=== PATIENT | male | born 1960 | race Caucasian/White ===

== ENCOUNTER 2019-07-28 11:26 | Inpatient (IN) | payer MEDICAID, OTHER ==
[~2019-07-28] VITALS: Ht 167.6 cm; Wt 95.6 kg
[2019-07-28] MEDS ORDERED: SODIUM CHLORIDE 0.9% 500 ML IV ONE (11:58)
[2019-07-28] MEDS ORDERED: CLINDAMYCIN 600MG IV 50 ML IV ONE (12:00)
[2019-07-28 12:17] LABS: Basophils # (auto) 0.1 10 ^3/uL (0-0.2); Basophils % (auto) 1.2 % (0.0-2.0); Eosinophils # (auto) 0.1 10 ^3/uL (0-0.8); Eosinophils % (auto) 1.2 % (0.0-7.0); Hematocrit 37.3 % (41.0-53.0); Hemoglobin 12.4 g/dL (13.5-17.5); Lymphocytes # (auto) 1.2 10 ^3/uL (0.4-5.4); Lymphocytes % (auto) 11.8 % (10.0-50.0); Mean Corpuscular Hgb Conc. 33.2 g/dL (32.0-36.0); Mean Corpuscular Volume 90.3 fL (80.0-100.0); Monocytes # (auto) 0.8 10 ^3/uL (0-1.3); Monocytes % (auto) 7.6 % (0.0-12.0); Neutrophils # (auto) 7.7 10 ^3/uL (1.6-8.6); Neutrophils % (auto) 78.2 % (37.0-80.0); Nucleated Red Blood Cells % 0.1 %; Platelet Count (auto) 277 10^3/uL (140-450); Red Blood Cells 4.12 10^6/uL (4.5-5.90); White Blood Cell 9.9 10^3/uL (4.4-10.8)
[2019-07-28 12:36] LABS: Albumin 2.8 g/dL (3.4-5.0); Calcium 9.7 mg/dL (8.5-10.1); Potassium 3.9 mmol/L (3.5-5.1)
[2019-07-28 12:39] LABS: Bilirubin, Total 0.4 mg/dL (0.2-1.0); Total Protein 7.2 g/dL (6.4-8.2)
[2019-07-28] MEDS ORDERED: DEXTROSE (50%) 50ML SYRG IV PRN (13:15)
[2019-07-28] MEDS ORDERED: NITROGLYCERIN 0.4 MG SL TAB SL PRN (13:15)
[2019-07-28] MEDS ORDERED: VANCOMYCIN PER PHARMACY 0 MG IV SCH (13:15)
[2019-07-28] MEDS ORDERED: MORPHINE SULF INJ 2 MG/ML SYRINGE 1ML IV PRN (13:15)
[2019-07-28] MEDS ORDERED: GABAPENTIN 300 MG CAP PO ONE (13:45)
[2019-07-28] MEDS ORDERED: FUROSEMIDE 20 MG TAB PO ONE (13:45)
[2019-07-28] MEDS ORDERED: METOPROLOL SUCCINATE XL 50 MG TAB PO ONE (13:45)
[2019-07-28] MEDS ORDERED: cefTRIAXone 1GM/50ML D5W 50 ML IV ONE (13:45)
[2019-07-28] MEDS: HYDROmorphone HCL 2 MG/ML VL IV PRN ×2 (13:50→18:02)
[2019-07-28] MEDS: ONDANSETRON HCL 4 MG/2 ML VIAL IV PRN (13:50)
[2019-07-28] MEDS ORDERED: VANCOMYCIN 1GM/250ML 250 ML IV ONE ×3 (14:45→17:45)
[2019-07-28] MEDS ORDERED: OPTISON 3ml Vial for INJ IV ONE (15:49)
[2019-07-28 16:41] VITALS: BP 107/53
[2019-07-28] MEDS: metroNIDAZOLE 500MG/100ML 100 ML IV SCH ×2 (16:48→21:18)
[2019-07-28 18:03] LABS: Magnesium 1.3 mg/dL (1.6-2.6)
[2019-07-28] MEDS: ACCU-CHEK COMFORT CURVE STRIP VI SCH ×2 (18:07→21:27)
[2019-07-28] MEDS: InsuLIN REG 1unit/0.01ml Soln (100units/ml) SC SCH ×2 (18:08→21:27)
[2019-07-28] MEDS ORDERED: LISI40TA PO (18:19)
[2019-07-28] MEDS ORDERED: SPIR25TA8 PO (18:19)
[2019-07-28] MEDS ORDERED: METF-370 PO (18:19)
[2019-07-28] MEDS ORDERED: GABA300C10 PO (18:19)
[2019-07-28] MEDS ORDERED: DABI150C5 PO (18:19)
[2019-07-28] MEDS ORDERED: METO-169 PO (18:19)
[2019-07-28] MEDS ORDERED: GLYB5TAB8 PO (18:19)
[2019-07-28] MEDS ORDERED: ATO40T PO (18:19)
[2019-07-28] MEDS ORDERED: FURO40TA4 PO (18:19)
[2019-07-28] MEDS ORDERED: ALBUAER3 IN (18:19)
[2019-07-28 20:10] VITALS: BP 103/58
[2019-07-28] MEDS: ATORVASTATIN 20 MG TAB PO SCH (21:15)
[2019-07-28] MEDS: GABAPENTIN 300 MG CAP PO SCH (21:15)
[2019-07-28 22:00] VITALS: BP 103/58
[2019-07-29] MEDS: HYDROmorphone HCL 2 MG/ML VL IV PRN ×4 (00:33→20:01)
[2019-07-29 05:00] VITALS: BP 129/85
[2019-07-29 05:10] LABS: Basophils # (auto) 0.1 10 ^3/uL (0-0.2); Eosinophils # (auto) 0.2 10 ^3/uL (0-0.8); Eosinophils % (auto) 1.8 % (0.0-7.0); Hematocrit 36.2 % (41.0-53.0); Hemoglobin 12.2 g/dL (13.5-17.5); Lymphocytes % (auto) 12.6 % (10.0-50.0); Mean Corpuscular Hemoglobin 30.5 pg (28.0-32.0); Mean Corpuscular Hgb Conc. 33.8 g/dL (32.0-36.0); Mean Corpuscular Volume 90.4 fL (80.0-100.0); Monocytes # (auto) 0.9 10 ^3/uL (0-1.3); Monocytes % (auto) 10.9 % (0.0-12.0); Neutrophils % (auto) 73.7 % (37.0-80.0); Nucleated Red Blood Cells % 0.1 %; Platelet Count (auto) 261 10^3/uL (140-450); Red Blood Cells 4.01 10^6/uL (4.5-5.90); Red Cell Distribution Width 15.7 % (11.8-14.3); White Blood Cell 8.2 10^3/uL (4.4-10.8)
[2019-07-29 05:26] LABS: BUN/Creatinine Ratio 17.1; Calcium 9.3 mg/dL (8.5-10.1); Potassium 4.3 mmol/L (3.5-5.1)
[2019-07-29] MEDS: metroNIDAZOLE 500MG/100ML 100 ML IV SCH (05:37)
[2019-07-29] MEDS: InsuLIN REG 1unit/0.01ml Soln (100units/ml) SC SCH ×4 (05:41→22:14)
[2019-07-29] MEDS: ACCU-CHEK COMFORT CURVE STRIP VI SCH ×4 (05:42→22:12)
[2019-07-29] MEDS: VANCOMYCIN 750mg/250ml 250 ML IV SCH ×2 (06:27→18:24)
[2019-07-29] MEDS ORDERED: FUROSEMIDE 20 MG/2 ML VIAL IV ONE (08:30)
[2019-07-29 08:34] VITALS: BP 105/67
[2019-07-29] MEDS: MAGNESIUM SULFATE 1GM/100ML 100 ML IV SCH ×2 (08:59→10:51)
[2019-07-29] MEDS ORDERED: cefTRIAXone 1GM/50ML D5W 50 ML IV SCH (09:00)
[2019-07-29] MEDS: GABAPENTIN 300 MG CAP PO SCH ×2 (09:46→22:12)
[2019-07-29] MEDS ORDERED: FUROSEMIDE 20 MG TAB PO SCH (10:00)
[2019-07-29] MEDS ORDERED: METOPROLOL SUCCINATE XL 50 MG TAB PO SCH (10:00)
[2019-07-29] MEDS ORDERED: PIPERACILLIN-TAZO 4.5GM 100 ML IV ONE (11:15)
[2019-07-29 11:28] LABS: Magnesium 1.7 mg/dL (1.6-2.6)
[2019-07-29 11:35] LABS: CRP High Sensitivity 3.33 mg/dL (< 0.3)
[2019-07-29 12:27] VITALS: BP 111/63
[2019-07-29 14:03] LABS: INR 1.13 (0.9-1.15); Partial Thromboplastin Time 31.2 sec (23.64-32.05)
[2019-07-29] MEDS ORDERED: MULTIPLE VITAMINS W/ MINERALS TAB PO ONE (15:15)
[2019-07-29] MEDS ORDERED: MAGNESIUM OXIDE 400 MG TAB PO ONE (15:15)
[2019-07-29] MEDS ORDERED: CHOLECALCIFEROL (VITD3) 1,000IU=25mCg TAB PO ONE (15:15)
[2019-07-29 16:45] VITALS: BP 125/83
[2019-07-29 17:12] LABS: Urine Bacteria NONE SEEN /hpf (None Seen); Urine Blood 2+ /uL (Negative); Urine Specific Gravity 1.015 (1.001-1.035); Urine WBC 3 /hpf (0 - 3)
[2019-07-29] MEDS ORDERED: NICOTINE 21MG/24 HR TOPICAL PATCH TD ONE (18:00)
[2019-07-29] MEDS ORDERED: PIPERACILLIN-TAZOB 3.375GM 100 ML IV SCH (18:00)
[2019-07-29] MEDS: FUROSEMIDE 100 MG/10ML VIAL IV SCH (18:23)
[2019-07-29 21:59] VITALS: BP 126/68
[2019-07-29] MEDS: PIPERACILLIN-TAZOB 3.375GM 100 ML IV SCH (22:11)
[2019-07-29] MEDS: HYDROcodone-ACET 5/325MG TAB PO PRN (22:12)
[2019-07-29] MEDS: ATORVASTATIN 20 MG TAB PO SCH (22:12)
[2019-07-29] MEDS: MAGNESIUM OXIDE 400 MG TAB PO SCH (22:12)
[2019-07-30] MEDS: PIPERACILLIN-TAZOB 3.375GM 100 ML IV SCH ×4 (01:45→19:55)
[2019-07-30] MEDS: HYDROmorphone HCL 2 MG/ML VL IV PRN ×4 (01:51→21:01)
[2019-07-30 05:00] VITALS: BP 129/71
[2019-07-30 06:01] LABS: Basophils # (auto) 0.1 10 ^3/uL (0-0.2); Basophils % (auto) 0.8 % (0.0-2.0); Eosinophils # (auto) 0.2 10 ^3/uL (0-0.8); Eosinophils % (auto) 2.2 % (0.0-7.0); Hematocrit 35.4 % (41.0-53.0); Hemoglobin 12.3 g/dL (13.5-17.5); Lymphocytes # (auto) 0.9 10 ^3/uL (0.4-5.4); Lymphocytes % (auto) 8.1 % (10.0-50.0); Mean Corpuscular Hemoglobin 31.2 pg (28.0-32.0); Mean Corpuscular Hgb Conc. 34.9 g/dL (32.0-36.0); Mean Corpuscular Volume 89.3 fL (80.0-100.0); Monocytes # (auto) 0.9 10 ^3/uL (0-1.3); Monocytes % (auto) 8.4 % (0.0-12.0); Neutrophils # (auto) 8.5 10 ^3/uL (1.6-8.6); Neutrophils % (auto) 80.5 % (37.0-80.0); Nucleated Red Blood Cells % 0.1 %; Platelet Count (auto) 272 10^3/uL (140-450); Red Blood Cells 3.96 10^6/uL (4.5-5.90); Red Cell Distribution Width 16.1 % (11.8-14.3); White Blood Cell 10.6 10^3/uL (4.4-10.8)
[2019-07-30 06:05] LABS: INR 1.15 (0.9-1.15); Partial Thromboplastin Time 32.5 sec (23.64-32.05)
[2019-07-30 06:19] LABS: Potassium 3.8 mmol/L (3.5-5.1)
[2019-07-30 06:24] LABS: BUN/Creatinine Ratio 16.2; Calcium 9.2 mg/dL (8.5-10.1); Magnesium 2.1 mg/dL (1.6-2.6)
[2019-07-30] MEDS: InsuLIN REG 1unit/0.01ml Soln (100units/ml) SC SCH ×4 (06:47→21:47)
[2019-07-30] MEDS: FUROSEMIDE 100 MG/10ML VIAL IV SCH ×2 (06:47→18:05)
[2019-07-30] MEDS: VANCOMYCIN 750mg/250ml 250 ML IV SCH ×2 (06:47→18:05)
[2019-07-30] MEDS: ACCU-CHEK COMFORT CURVE STRIP VI SCH ×4 (06:47→21:47)
[2019-07-30] MEDS: MAGNESIUM OXIDE 400 MG TAB PO SCH ×2 (09:06→21:47)
[2019-07-30] MEDS: SACUBITRIL-VALSARTAN 24mg/26mg TAB PO SCH ×2 (09:06→21:47)
[2019-07-30] MEDS: METOPROLOL SUCCINATE XL 50 MG TAB PO SCH (09:08)
[2019-07-30] MEDS: NICOTINE 21MG/24 HR TOPICAL PATCH TD SCH (09:14)
[2019-07-30] MEDS ORDERED: LIDOCAINE 2%HCL (LOCAL ANESTH.) INJ 20ML MDV ONE ×2 (09:27→10:43)
[2019-07-30] MEDS ORDERED: IODIXANOL 320MG/ML 100ML BTL IV ONE (09:27)
[2019-07-30] MEDS ORDERED: fentaNYL CITRATE 100 MCG/2 ML VL ONE (10:20)
[2019-07-30] MEDS ORDERED: ANGIOMAX 250 MG VIAL IV ONE (10:20)
[2019-07-30] MEDS ORDERED: SODIUM CHL 0.9% 50 ML ONE (10:21)
[2019-07-30] MEDS ORDERED: MIDAZOLAM HCL 1MG/1ML-2 ML VIAL ONE (10:21)
[2019-07-30] MEDS ORDERED: VERAPAMIL 2.5MG/ML INJ 2ML VIAL IV ONE ×2 (10:59→11:14)
[2019-07-30] MEDS ORDERED: BISACODYL 5 MG EC TAB PO ONE (11:15)
[2019-07-30 13:00] VITALS: BP 124/67
[2019-07-30 14:11] LABS: Creatinine, Urine 39 mg/dL (30.0-125.0); Sodium Urine 65 mmol/L (40-220)
[2019-07-30] MEDS: MULTIPLE VITAMINS W/ MINERALS TAB PO SCH (14:24)
[2019-07-30] MEDS: CHOLECALCIFEROL (VITD3) 1,000IU=25mCg TAB PO SCH (14:47)
[2019-07-30 17:15] VITALS: BP 110/68
[2019-07-30] MEDS: ATORVASTATIN 20 MG TAB PO SCH (21:47)
[2019-07-30 22:00] VITALS: BP 119/68
[2019-07-31] MEDS: HYDROmorphone HCL 2 MG/ML VL IV PRN ×5 (01:10→23:23)
[2019-07-31] MEDS: PIPERACILLIN-TAZOB 3.375GM 100 ML IV SCH ×4 (01:44→20:28)
[2019-07-31 05:00] VITALS: BP 120/54
[2019-07-31] MEDS: ACCU-CHEK COMFORT CURVE STRIP VI SCH ×4 (06:29→21:48)
[2019-07-31] MEDS: VANCOMYCIN 750mg/250ml 250 ML IV SCH ×2 (06:29→18:43)
[2019-07-31] MEDS: FUROSEMIDE 100 MG/10ML VIAL IV SCH ×2 (06:29→17:34)
[2019-07-31 06:38] LABS: BUN/Creatinine Ratio 13.2; Calcium 8.7 mg/dL (8.5-10.1); Magnesium 2.1 mg/dL (1.6-2.6); Potassium 3.3 mmol/L (3.5-5.1)
[2019-07-31] MEDS: InsuLIN REG 1unit/0.01ml Soln (100units/ml) SC SCH ×4 (06:39→21:49)
[2019-07-31 08:00] VITALS: BP 120/54
[2019-07-31] MEDS ORDERED: POTASSIUM CHL 20 Meq TABLET PO ONE ×2 (08:30→11:00)
[2019-07-31 09:13] VITALS: BP 131/70
[2019-07-31] MEDS: NICOTINE 21MG/24 HR TOPICAL PATCH TD SCH (09:37)
[2019-07-31] MEDS: MAGNESIUM OXIDE 400 MG TAB PO SCH ×2 (09:38→21:48)
[2019-07-31] MEDS: SACUBITRIL-VALSARTAN 24mg/26mg TAB PO SCH ×2 (09:38→21:48)
[2019-07-31] MEDS: MULTIPLE VITAMINS W/ MINERALS TAB PO SCH (09:38)
[2019-07-31] MEDS: HYDROcodone-ACET 5/325MG TAB PO PRN ×2 (09:39→20:37)
[2019-07-31] MEDS: METOPROLOL SUCCINATE XL 50 MG TAB PO SCH (09:39)
[2019-07-31] MEDS: CHOLECALCIFEROL (VITD3) 1,000IU=25mCg TAB PO SCH (12:54)
[2019-07-31] MEDS: CALCIUM CARB 500 MG CHEW TAB PO PRN (12:55)
[2019-07-31] MEDS: ONDANSETRON HCL 4 MG/2 ML VIAL IV PRN (12:55)
[2019-07-31 13:00] VITALS: BP 116/63
[2019-07-31] MEDS ORDERED: LIDOCAINE 1% (LOCAL ANESTH.) PF 5ml SDV ID ONE (15:00)
[2019-07-31 16:29] VITALS: BP 119/59
[2019-07-31] MEDS: ATORVASTATIN 20 MG TAB PO SCH (21:48)
[2019-07-31] MEDS: SODIUM CHLOR 0.9% PF (SALINE LOCK) 10ML VIAL/SYR IV SCH (21:48)
[2019-07-31 22:00] VITALS: BP 124/72
[2019-08-01] MEDS: PIPERACILLIN-TAZOB 3.375GM 100 ML IV SCH ×4 (01:59→20:34)
[2019-08-01 05:02] VITALS: BP 124/62
[2019-08-01] MEDS: VANCOMYCIN 750mg/250ml 250 ML IV SCH ×2 (05:40→18:43)
[2019-08-01] MEDS: FUROSEMIDE 100 MG/10ML VIAL IV SCH (05:40)
[2019-08-01] MEDS: HYDROmorphone HCL 2 MG/ML VL IV PRN ×3 (05:40→20:34)
[2019-08-01 06:09] LABS: Basophils # (auto) 0.1 10 ^3/uL (0-0.2); Basophils % (auto) 0.7 % (0.0-2.0); Eosinophils # (auto) 0.2 10 ^3/uL (0-0.8); Eosinophils % (auto) 1.6 % (0.0-7.0); Hematocrit 36.6 % (41.0-53.0); Hemoglobin 12.4 g/dL (13.5-17.5); Lymphocytes % (auto) 8.4 % (10.0-50.0); Mean Corpuscular Hemoglobin 30.2 pg (28.0-32.0); Mean Corpuscular Hgb Conc. 33.9 g/dL (32.0-36.0); Mean Corpuscular Volume 89.3 fL (80.0-100.0); Monocytes # (auto) 1.2 10 ^3/uL (0-1.3); Monocytes % (auto) 10.8 % (0.0-12.0); Neutrophils # (auto) 8.9 10 ^3/uL (1.6-8.6); Neutrophils % (auto) 78.5 % (37.0-80.0); Nucleated Red Blood Cells % 0.1 %; Platelet Count (auto) 204 10^3/uL (140-450); White Blood Cell 11.3 10^3/uL (4.4-10.8)
[2019-08-01 06:22] LABS: INR 1.21 (0.9-1.15); Partial Thromboplastin Time 30.2 sec (23.64-32.05)
[2019-08-01 06:26] LABS: BUN/Creatinine Ratio 10.7; Calcium 8.9 mg/dL (8.5-10.1); Phosphorus 1.8 mg/dL (2.5-4.90); Potassium 3.9 mmol/L (3.5-5.1)
[2019-08-01] MEDS: ACCU-CHEK COMFORT CURVE STRIP VI SCH ×4 (06:48→21:48)
[2019-08-01] MEDS: InsuLIN REG 1unit/0.01ml Soln (100units/ml) SC SCH ×4 (06:49→22:25)
[2019-08-01 08:00] VITALS: BP 124/62
[2019-08-01] MEDS: SACUBITRIL-VALSARTAN 24mg/26mg TAB PO SCH ×2 (08:20→21:47)
[2019-08-01] MEDS: METOPROLOL SUCCINATE XL 50 MG TAB PO SCH (08:22)
[2019-08-01 09:00] VITALS: BP 102/59
[2019-08-01] MEDS ORDERED: IODIXANOL 320MG/ML 100ML BTL IV ONE ×2 (09:07→10:28)
[2019-08-01] MEDS ORDERED: ANGIOMAX 250 MG VIAL IV ONE ×2 (09:17→10:28)
[2019-08-01] MEDS ORDERED: MIDAZOLAM HCL 1MG/1ML-2 ML VIAL ONE ×2 (09:18→10:16)
[2019-08-01] MEDS ORDERED: fentaNYL CITRATE 100 MCG/2 ML VL ONE ×2 (09:18→10:16)
[2019-08-01] MEDS ORDERED: SODIUM CHL 0.9% 0 ML ONE (09:18)
[2019-08-01] MEDS ORDERED: VERAPAMIL 2.5MG/ML INJ 2ML VIAL IV ONE ×2 (09:53→10:15)
[2019-08-01] MEDS ORDERED: diphenhdrAMINE HCL 50 MG/1 ML VL ONE (09:58)
[2019-08-01] MEDS: SODIUM CHLOR 0.9% PF (SALINE LOCK) 10ML VIAL/SYR IV SCH ×2 (10:00→21:47)
[2019-08-01] MEDS ORDERED: SODIUM CHL 0.9% 50 ML ONE (10:28)
[2019-08-01] MEDS ORDERED: CLOPIDOGREL 300 MG TAB PO ONE (11:45)
[2019-08-01 13:00] VITALS: BP 126/69
[2019-08-01] MEDS: POTASSIUM CHL 20 Meq TABLET PO SCH (13:54)
[2019-08-01] MEDS: NICOTINE 21MG/24 HR TOPICAL PATCH TD SCH (13:54)
[2019-08-01] MEDS: MULTIPLE VITAMINS W/ MINERALS TAB PO SCH (13:54)
[2019-08-01] MEDS: MAGNESIUM OXIDE 400 MG TAB PO SCH ×2 (13:55→21:48)
[2019-08-01] MEDS: CALCIUM CARB 500 MG CHEW TAB PO PRN ×2 (16:35→20:34)
[2019-08-01] MEDS: CHOLECALCIFEROL (VITD3) 1,000IU=25mCg TAB PO SCH (16:50)
[2019-08-01 17:00] VITALS: BP 125/70
[2019-08-01] MEDS: APIXABAN 2.5 MG TAB PO SCH (21:47)
[2019-08-01] MEDS: ATORVASTATIN 20 MG TAB PO SCH (21:47)
[2019-08-01 22:00] VITALS: BP 144/75
[2019-08-01] MEDS: HYDROcodone-ACET 5/325MG TAB PO PRN (22:45)
[2019-08-02] MEDS: HYDROmorphone HCL 2 MG/ML VL IV PRN ×5 (00:20→23:37)
[2019-08-02] MEDS: PIPERACILLIN-TAZOB 3.375GM 100 ML IV SCH ×4 (02:29→19:37)
[2019-08-02 05:00] VITALS: BP 135/68
[2019-08-02] MEDS: VANCOMYCIN 750mg/250ml 250 ML IV SCH ×3 (06:00→20:04)
[2019-08-02] MEDS: ACCU-CHEK COMFORT CURVE STRIP VI SCH ×4 (07:10→21:40)
[2019-08-02] MEDS: InsuLIN REG 1unit/0.01ml Soln (100units/ml) SC SCH ×4 (07:11→21:43)
[2019-08-02 08:00] VITALS: BP 131/74
[2019-08-02 09:00] VITALS: BP 131/74
[2019-08-02] MEDS: NICOTINE 21MG/24 HR TOPICAL PATCH TD SCH (09:42)
[2019-08-02] MEDS: SODIUM CHLOR 0.9% PF (SALINE LOCK) 10ML VIAL/SYR IV SCH ×2 (09:42→21:31)
[2019-08-02] MEDS: SACUBITRIL-VALSARTAN 24mg/26mg TAB PO SCH ×2 (09:42→21:40)
[2019-08-02] MEDS: CHOLECALCIFEROL (VITD3) 1,000IU=25mCg TAB PO SCH (09:43)
[2019-08-02] MEDS: POTASSIUM CHL 20 Meq TABLET PO SCH (09:44)
[2019-08-02] MEDS: METOPROLOL SUCCINATE XL 50 MG TAB PO SCH (09:44)
[2019-08-02] MEDS: APIXABAN 2.5 MG TAB PO SCH ×2 (09:44→21:40)
[2019-08-02] MEDS: FUROSEMIDE 20 MG TAB PO SCH (09:45)
[2019-08-02] MEDS: MULTIPLE VITAMINS W/ MINERALS TAB PO SCH (09:46)
[2019-08-02] MEDS: MAGNESIUM OXIDE 400 MG TAB PO SCH ×2 (09:46→21:40)
[2019-08-02] MEDS: CLOPIDOGREL BISULFATE 75 MG TAB PO SCH (09:46)
[2019-08-02 12:57] VITALS: BP 116/65
[2019-08-02] MEDS: CALCIUM CARB 500 MG CHEW TAB PO PRN ×2 (13:17→18:02)
[2019-08-02] MEDS: HYDROcodone-ACET 5/325MG TAB PO PRN (16:39)
[2019-08-02 17:00] VITALS: BP 138/78
[2019-08-02] MEDS: ATORVASTATIN 20 MG TAB PO SCH (21:40)
[2019-08-02 22:00] VITALS: BP 133/78
[2019-08-03] MEDS: PIPERACILLIN-TAZOB 3.375GM 100 ML IV SCH ×4 (01:52→20:01)
[2019-08-03] MEDS: HYDROmorphone HCL 2 MG/ML VL IV PRN ×4 (03:59→23:32)
[2019-08-03] MEDS: ACCU-CHEK COMFORT CURVE STRIP VI SCH ×4 (06:05→21:07)
[2019-08-03] MEDS: InsuLIN REG 1unit/0.01ml Soln (100units/ml) SC SCH ×4 (06:08→21:10)
[2019-08-03] MEDS: VANCOMYCIN 750mg/250ml 250 ML IV SCH ×2 (07:40→20:01)
[2019-08-03 09:00] VITALS: BP 112/59
[2019-08-03] MEDS: SODIUM CHLOR 0.9% PF (SALINE LOCK) 10ML VIAL/SYR IV SCH ×2 (09:35→21:06)
[2019-08-03] MEDS: APIXABAN 2.5 MG TAB PO SCH ×2 (09:36→21:07)
[2019-08-03] MEDS: NICOTINE 21MG/24 HR TOPICAL PATCH TD SCH (09:36)
[2019-08-03] MEDS: CLOPIDOGREL BISULFATE 75 MG TAB PO SCH (09:36)
[2019-08-03] MEDS: SACUBITRIL-VALSARTAN 24mg/26mg TAB PO SCH ×2 (09:36→21:07)
[2019-08-03] MEDS: CHOLECALCIFEROL (VITD3) 1,000IU=25mCg TAB PO SCH (09:37)
[2019-08-03] MEDS: MULTIPLE VITAMINS W/ MINERALS TAB PO SCH (09:37)
[2019-08-03] MEDS: FUROSEMIDE 20 MG TAB PO SCH (09:38)
[2019-08-03] MEDS: POTASSIUM CHL 20 Meq TABLET PO SCH (09:38)
[2019-08-03] MEDS: METOPROLOL SUCCINATE XL 50 MG TAB PO SCH (09:39)
[2019-08-03] MEDS: MAGNESIUM OXIDE 400 MG TAB PO SCH ×2 (09:39→21:08)
[2019-08-03 13:00] VITALS: BP 136/80
[2019-08-03] MEDS: HYDROcodone-ACET 5/325MG TAB PO PRN (16:00)
[2019-08-03 17:00] VITALS: BP 139/79
[2019-08-03] MEDS: CALCIUM CARB 500 MG CHEW TAB PO PRN (21:08)
[2019-08-03] MEDS: ATORVASTATIN 20 MG TAB PO SCH (21:08)
[2019-08-03 22:15] VITALS: BP 128/73
[2019-08-04] MEDS: PIPERACILLIN-TAZOB 3.375GM 100 ML IV SCH ×4 (01:39→19:56)
[2019-08-04 05:00] VITALS: BP 137/77
[2019-08-04] MEDS: ACCU-CHEK COMFORT CURVE STRIP VI SCH ×4 (06:07→21:25)
[2019-08-04] MEDS: HYDROmorphone HCL 2 MG/ML VL IV PRN ×5 (06:07→20:17)
[2019-08-04] MEDS: InsuLIN REG 1unit/0.01ml Soln (100units/ml) SC SCH ×4 (06:09→21:32)
[2019-08-04 06:20] LABS: Basophils # (auto) 0.1 10 ^3/uL (0-0.2); Basophils % (auto) 1.3 % (0.0-2.0); Eosinophils # (auto) 0.3 10 ^3/uL (0-0.8); Eosinophils % (auto) 2.8 % (0.0-7.0); Hematocrit 36.5 % (41.0-53.0); Hemoglobin 12.3 g/dL (13.5-17.5); Lymphocytes # (auto) 1.2 10 ^3/uL (0.4-5.4); Mean Corpuscular Hemoglobin 29.8 pg (28.0-32.0); Mean Corpuscular Hgb Conc. 33.6 g/dL (32.0-36.0); Mean Corpuscular Volume 88.7 fL (80.0-100.0); Monocytes # (auto) 0.9 10 ^3/uL (0-1.3); Monocytes % (auto) 9.3 % (0.0-12.0); Neutrophils % (auto) 73.6 % (37.0-80.0); Nucleated Red Blood Cells % 0.1 %; Platelet Count (auto) 263 10^3/uL (140-450); Red Blood Cells 4.11 10^6/uL (4.5-5.90); Red Cell Distribution Width 15.8 % (11.8-14.3); White Blood Cell 9.5 10^3/uL (4.4-10.8)
[2019-08-04 06:41] LABS: Calcium 8.6 mg/dL (8.5-10.1)
[2019-08-04] MEDS: VANCOMYCIN 750mg/250ml 250 ML IV SCH ×2 (08:10→19:57)
[2019-08-04] MEDS ORDERED: DAKINS HALF STR 0.25% (NaHypochlorite) 473 ML TOPICAL SOL TOP ONE (08:45)
[2019-08-04 09:00] VITALS: BP 112/66
[2019-08-04] MEDS ORDERED: BUPIVACAINE HCL 50 ML ONE (09:00)
[2019-08-04] MEDS ORDERED: LIDOCAINE 1% HCL (LOCAL ANESTH.) INJ 20ML MDV ONE (09:00)
[2019-08-04] MEDS: POTASSIUM CHL 20 Meq TABLET PO SCH (09:43)
[2019-08-04] MEDS: MULTIPLE VITAMINS W/ MINERALS TAB PO SCH (09:43)
[2019-08-04] MEDS: FUROSEMIDE 20 MG TAB PO SCH (09:44)
[2019-08-04] MEDS: SACUBITRIL-VALSARTAN 24mg/26mg TAB PO SCH ×2 (09:44→21:24)
[2019-08-04] MEDS: CHOLECALCIFEROL (VITD3) 1,000IU=25mCg TAB PO SCH (09:44)
[2019-08-04] MEDS: METOPROLOL SUCCINATE XL 50 MG TAB PO SCH (09:44)
[2019-08-04] MEDS: MAGNESIUM OXIDE 400 MG TAB PO SCH ×2 (09:45→21:25)
[2019-08-04] MEDS: NICOTINE 21MG/24 HR TOPICAL PATCH TD SCH (09:45)
[2019-08-04] MEDS: SODIUM CHLOR 0.9% PF (SALINE LOCK) 10ML VIAL/SYR IV SCH ×2 (09:46→21:24)
[2019-08-04] MEDS: APIXABAN 2.5 MG TAB PO SCH (10:00)
[2019-08-04] MEDS: CLOPIDOGREL BISULFATE 75 MG TAB PO SCH (10:00)
[2019-08-04] MEDS ORDERED: ERGOCALCIFEROL 50,000 UNIT(1.25MG) CAP PO SCH (10:30)
[2019-08-04 13:00] VITALS: BP 112/65
[2019-08-04] MEDS: HYDROcodone-ACET 5/325MG TAB PO PRN (15:03)
[2019-08-04] MEDS: CALCIUM CARB 500 MG CHEW TAB PO PRN ×2 (15:28→21:33)
[2019-08-04 17:00] VITALS: BP 138/65
[2019-08-04] MEDS: ATORVASTATIN 20 MG TAB PO SCH (21:24)
[2019-08-04] MEDS: ENOXAPARIN SOD 100 MG/1 ML SYRINGE SC SCH (21:25)
[2019-08-04] MEDS: INSULIN LANTUS (GLARGINE) 1 /0.01ml (100units/ml) SC SCH (21:28)
[2019-08-04 22:05] VITALS: BP 147/77
[2019-08-05] MEDS: PIPERACILLIN-TAZOB 3.375GM 100 ML IV SCH ×4 (01:20→20:00)
[2019-08-05] MEDS: HYDROmorphone HCL 2 MG/ML VL IV PRN ×5 (01:20→20:03)
[2019-08-05 05:00] VITALS: BP 114/68
[2019-08-05] MEDS: ACCU-CHEK COMFORT CURVE STRIP VI SCH ×4 (06:15→21:59)
[2019-08-05] MEDS: INSULIN LANTUS (GLARGINE) 1 /0.01ml (100units/ml) SC SCH ×2 (06:17→21:59)
[2019-08-05] MEDS: InsuLIN REG 1unit/0.01ml Soln (100units/ml) SC SCH ×4 (06:20→21:58)
[2019-08-05] MEDS: VANCOMYCIN 750mg/250ml 250 ML IV SCH ×2 (07:44→20:00)
[2019-08-05] MEDS: HYDROcodone-ACET 5/325MG TAB PO PRN ×2 (08:48→22:01)
[2019-08-05 09:00] VITALS: BP 126/71
[2019-08-05] MEDS: POTASSIUM CHL 20 Meq TABLET PO SCH (09:36)
[2019-08-05] MEDS: MULTIPLE VITAMINS W/ MINERALS TAB PO SCH (09:36)
[2019-08-05] MEDS: CHOLECALCIFEROL (VITD3) 1,000IU=25mCg TAB PO SCH (09:37)
[2019-08-05] MEDS: ENOXAPARIN SOD 100 MG/1 ML SYRINGE SC SCH (09:37)
[2019-08-05] MEDS: SACUBITRIL-VALSARTAN 24mg/26mg TAB PO SCH ×2 (09:37→21:48)
[2019-08-05] MEDS: METOPROLOL SUCCINATE XL 50 MG TAB PO SCH (09:38)
[2019-08-05] MEDS: FUROSEMIDE 20 MG TAB PO SCH (09:38)
[2019-08-05] MEDS: MAGNESIUM OXIDE 400 MG TAB PO SCH ×2 (09:39→21:49)
[2019-08-05] MEDS: NICOTINE 21MG/24 HR TOPICAL PATCH TD SCH (09:39)
[2019-08-05] MEDS: SODIUM CHLOR 0.9% PF (SALINE LOCK) 10ML VIAL/SYR IV SCH ×2 (11:05→22:52)
[2019-08-05] MEDS: CALCIUM CARB 500 MG CHEW TAB PO PRN (11:05)
[2019-08-05 12:45] VITALS: BP 132/74
[2019-08-05 13:17] LABS: Basophils # (auto) 0 10 ^3/uL (0-0.2); Basophils % (auto) 0.3 % (0.0-2.0); Eosinophils # (auto) 0.3 10 ^3/uL (0-0.8); Eosinophils % (auto) 2.9 % (0.0-7.0); Hematocrit 39.1 % (41.0-53.0); Hemoglobin 12.5 g/dL (13.5-17.5); Lymphocytes # (auto) 1.4 10 ^3/uL (0.4-5.4); Lymphocytes % (auto) 12.7 % (10.0-50.0); Mean Corpuscular Hemoglobin 28.6 pg (28.0-32.0); Mean Corpuscular Hgb Conc. 32.1 g/dL (32.0-36.0); Mean Corpuscular Volume 89.2 fL (80.0-100.0); Monocytes % (auto) 8.9 % (0.0-12.0); Neutrophils # (auto) 8.4 10 ^3/uL (1.6-8.6); Neutrophils % (auto) 75.2 % (37.0-80.0); Nucleated Red Blood Cells % 0.1 %; Platelet Count (auto) 321 10^3/uL (140-450); Red Blood Cells 4.38 10^6/uL (4.5-5.90); Red Cell Distribution Width 15.9 % (11.8-14.3); White Blood Cell 11.1 10^3/uL (4.4-10.8)
[2019-08-05 13:32] LABS: INR 1.11 (0.9-1.15); Partial Thromboplastin Time 30.8 sec (23.64-32.05)
[2019-08-05 13:36] LABS: Albumin 2.4 g/dL (3.4-5.0); Calcium 8.9 mg/dL (8.5-10.1); Potassium 4.2 mmol/L (3.5-5.1)
[2019-08-05 13:39] LABS: BUN/Creatinine Ratio 8.6; Bilirubin, Total 0.4 mg/dL (0.2-1.0); Total Protein 6.8 g/dL (6.4-8.2)
[2019-08-05 17:00] VITALS: BP 105/70
[2019-08-05] MEDS: ATORVASTATIN 20 MG TAB PO SCH (21:49)
[2019-08-05 22:00] VITALS: BP 105/73
[2019-08-06] MEDS: HYDROmorphone HCL 2 MG/ML VL IV PRN ×5 (00:30→23:39)
[2019-08-06] MEDS: PIPERACILLIN-TAZOB 3.375GM 100 ML IV SCH ×3 (02:22→17:27)
[2019-08-06 05:00] VITALS: BP_SYST 116; BP_SYST 130; BP_DIAS 69; BP_DIAS 71
[2019-08-06 06:16] LABS: BUN/Creatinine Ratio 10.9; Calcium 9.1 mg/dL (8.5-10.1); Potassium 4.4 mmol/L (3.5-5.1)
[2019-08-06] MEDS: INSULIN LANTUS (GLARGINE) 1 /0.01ml (100units/ml) SC SCH ×2 (07:00→22:00)
[2019-08-06] MEDS: ACCU-CHEK COMFORT CURVE STRIP VI SCH ×4 (07:00→22:00)
[2019-08-06] MEDS: InsuLIN REG 1unit/0.01ml Soln (100units/ml) SC SCH ×4 (07:00→22:00)
[2019-08-06] MEDS: VANCOMYCIN 750mg/250ml 250 ML IV SCH ×3 (07:31→20:00)
[2019-08-06] MEDS ORDERED: MIDAZOLAM HCL 1MG/1ML-2 ML VIAL ONE (07:33)
[2019-08-06] MEDS ORDERED: SODIUM CHLORIDE LOCK 10 ML ONE (07:33)
[2019-08-06] MEDS ORDERED: PROPOFOL 10 MG/ML 20 ML IV ONE (07:33)
[2019-08-06] MEDS ORDERED: ONDANSETRON HCL 4 MG/2 ML VIAL ONE (07:33)
[2019-08-06] MEDS ORDERED: fentaNYL CITRATE 100 MCG/2 ML VL ONE (07:33)
[2019-08-06] MEDS ORDERED: KETAMINE HCL 10 ML ONE (07:33)
[2019-08-06 08:00] VITALS: BP 126/71
[2019-08-06] MEDS ORDERED: LIDOCAINE 1% HCL (LOCAL ANESTH.) INJ 20ML MDV ONE ×2 (08:10→08:33)
[2019-08-06] MEDS ORDERED: BUPIVACAINE HCL 50 ML ONE (08:11)
[2019-08-06] MEDS ORDERED: METOCLOPRAMIDE HCL 5MG/ml INJ 2ml VIAL IV PRN (08:15)
[2019-08-06] MEDS ORDERED: MORPHINE SULFATE 4 MG/ML SYR/VIAL IV PRN (08:15)
[2019-08-06] MEDS ORDERED: HYDROmorphone HCL 2 MG/ML VL IV PRN (08:15)
[2019-08-06] MEDS ORDERED: ACCU-CHEK COMFORT CURVE STRIP VI ONE (08:15)
[2019-08-06] MEDS: SODIUM CHLOR 0.9% PF (SALINE LOCK) 10ML VIAL/SYR IV SCH ×2 (10:00→22:00)
[2019-08-06 12:35] VITALS: BP 129/63
[2019-08-06] MEDS: NICOTINE 21MG/24 HR TOPICAL PATCH TD SCH (16:02)
[2019-08-06] MEDS: MULTIPLE VITAMINS W/ MINERALS TAB PO SCH (16:02)
[2019-08-06] MEDS: POTASSIUM CHL 20 Meq TABLET PO SCH (16:04)
[2019-08-06] MEDS: METOPROLOL SUCCINATE XL 50 MG TAB PO SCH (16:05)
[2019-08-06] MEDS: SACUBITRIL-VALSARTAN 24mg/26mg TAB PO SCH ×2 (16:06→22:00)
[2019-08-06] MEDS: CHOLECALCIFEROL (VITD3) 1,000IU=25mCg TAB PO SCH (16:06)
[2019-08-06] MEDS: FUROSEMIDE 20 MG TAB PO SCH (16:07)
[2019-08-06] MEDS: MAGNESIUM OXIDE 400 MG TAB PO SCH ×2 (16:08→22:00)
[2019-08-06 17:00] VITALS: BP 102/52
[2019-08-06] MEDS: HYDROcodone-ACET 5/325MG TAB PO PRN (21:55)
[2019-08-06 22:00] VITALS: BP 110/57
[2019-08-06] MEDS: ATORVASTATIN 20 MG TAB PO SCH (22:00)
[2019-08-06] MEDS ORDERED: APIXABAN 5 MG TAB PO SCH (22:00)
[2019-08-07] MEDS: PIPERACILLIN-TAZOB 3.375GM 100 ML IV SCH ×3 (00:18→12:20)
[2019-08-07] MEDS: HYDROmorphone HCL 2 MG/ML VL IV PRN ×3 (03:30→10:24)
[2019-08-07 05:00] VITALS: BP 113/63
[2019-08-07] MEDS: HYDROcodone-ACET 5/325MG TAB PO PRN ×2 (05:02→13:25)
[2019-08-07] MEDS: InsuLIN REG 1unit/0.01ml Soln (100units/ml) SC SCH ×2 (06:43→11:38)
[2019-08-07] MEDS: INSULIN LANTUS (GLARGINE) 1 /0.01ml (100units/ml) SC SCH (06:44)
[2019-08-07] MEDS: ACCU-CHEK COMFORT CURVE STRIP VI SCH ×2 (06:46→11:37)
[2019-08-07 08:00] VITALS: BP 129/63
[2019-08-07] MEDS: VANCOMYCIN 750mg/250ml 250 ML IV SCH (08:36)
[2019-08-07 09:00] VITALS: BP 158/81
[2019-08-07] MEDS: SACUBITRIL-VALSARTAN 24mg/26mg TAB PO SCH (09:16)
[2019-08-07] MEDS: NICOTINE 21MG/24 HR TOPICAL PATCH TD SCH (09:16)
[2019-08-07] MEDS: CHOLECALCIFEROL (VITD3) 1,000IU=25mCg TAB PO SCH (09:17)
[2019-08-07] MEDS: FUROSEMIDE 20 MG TAB PO SCH (09:18)
[2019-08-07] MEDS: POTASSIUM CHL 20 Meq TABLET PO SCH (09:19)
[2019-08-07] MEDS: MULTIPLE VITAMINS W/ MINERALS TAB PO SCH (09:19)
[2019-08-07] MEDS: METOPROLOL SUCCINATE XL 50 MG TAB PO SCH (09:20)
[2019-08-07] MEDS: MAGNESIUM OXIDE 400 MG TAB PO SCH (09:21)
[2019-08-07] MEDS: SODIUM CHLOR 0.9% PF (SALINE LOCK) 10ML VIAL/SYR IV SCH (09:35)
[2019-08-07] MEDS ORDERED: APIXABAN 5 MG TAB PO SCH (10:00)
[2019-08-07] MEDS ORDERED: CLOPIDOGREL BISULFATE 75 MG TAB PO SCH ×2 (10:00)
[2019-08-07 12:53] VITALS: BP 115/68
[2019-08-07] MEDS ORDERED: GLYB5TAB8 PO (14:03)
[2019-08-07] MEDS ORDERED: ATO40T PO (14:03)
[2019-08-07] MEDS ORDERED: GABA300C10 PO (14:03)
[2019-08-07] MEDS ORDERED: METO-169 PO (14:03)
[2019-08-07] MEDS ORDERED: SPIR25TA8 PO (14:03)
[2019-08-07] MEDS ORDERED: LISI40TA PO (14:03)
[2019-08-07] MEDS ORDERED: CLIN-203 PO (14:03)
[2019-08-07] MEDS ORDERED: METF-370 PO (14:03)
[2019-08-07] MEDS ORDERED: FURO40TA4 PO (14:03)
[2019-08-07] MEDS ORDERED: SACC1CAP3 PO (14:03)
[2019-08-07] MEDS ORDERED: APIX5TAB PO (14:03)
[2019-08-07] MEDS ORDERED: CLOP75TA28 PO (14:03)
[2019-08-07 15:17] VITALS: BP 158/81
== END 2019-08-07 17:00 | disposition home or self-care (01) | DRG 181 ==
LOC: ER 11:26 → TELE 11:27 → TELE-CENTR 15:27
PROVIDERS: ADMIT Nurse Practitioner Acute Care; ATTEND Internal Medicine
PROC: 04CL3ZZ Extirpation of Matter from Left Femoral Artery, Percutaneous Approach (ICD-10-PCS; 2019-07-30)
PROC: 047L3ZZ Dilation of Left Femoral Artery, Percutaneous Approach (ICD-10-PCS; 2019-07-30)
PROC: 047S3ZZ Dilation of Left Posterior Tibial Artery, Percutaneous Approach (ICD-10-PCS; 2019-07-30)
PROC: 04CS3ZZ Extirpation of Matter from Left Posterior Tibial Artery, Percutaneous Approach (ICD-10-PCS; 2019-07-30)
PROC: B41GYZZ Fluoroscopy of Left Lower Extremity Arteries using Other Contrast (ICD-10-PCS; 2019-07-30)
PROC: B41FYZZ Fluoroscopy of Right Lower Extremity Arteries using Other Contrast (ICD-10-PCS; 2019-07-30)
PROC: 02HV33Z Insertion of Infusion Device into Superior Vena Cava, Percutaneous Approach (ICD-10-PCS; principal; 2019-07-31)
PROC: 047R3ZZ Dilation of Right Posterior Tibial Artery, Percutaneous Approach (ICD-10-PCS; 2019-08-01)
PROC: 047P3ZZ Dilation of Right Anterior Tibial Artery, Percutaneous Approach (ICD-10-PCS; 2019-08-01)
PROC: 04CR3ZZ Extirpation of Matter from Right Posterior Tibial Artery, Percutaneous Approach (ICD-10-PCS; 2019-08-01)
PROC: 04CP3ZZ Extirpation of Matter from Right Anterior Tibial Artery, Percutaneous Approach (ICD-10-PCS; 2019-08-01)
PROC: B41F1ZZ Fluoroscopy of Right Lower Extremity Arteries using Low Osmolar Contrast (ICD-10-PCS; 2019-08-01)
PROC: 0Y6N0Z9 Detachment at Left Foot, Partial 1st Ray, Open Approach (ICD-10-PCS; 2019-08-06)
PROC: 0Y6N0ZB Detachment at Left Foot, Partial 2nd Ray, Open Approach (ICD-10-PCS; 2019-08-06)
PROC: 0Y6N0ZC Detachment at Left Foot, Partial 3rd Ray, Open Approach (ICD-10-PCS; 2019-08-06)
PROC: 0Y6N0ZD Detachment at Left Foot, Partial 4th Ray, Open Approach (ICD-10-PCS; 2019-08-06)
PROC: 0Y6N0ZF Detachment at Left Foot, Partial 5th Ray, Open Approach (ICD-10-PCS; 2019-08-06)
PROC: 0Y6M0Z9 Detachment at Right Foot, Partial 1st Ray, Open Approach (ICD-10-PCS; 2019-08-06)
PROC: 0Y6M0ZB Detachment at Right Foot, Partial 2nd Ray, Open Approach (ICD-10-PCS; 2019-08-06)
PROC: 0Y6M0ZC Detachment at Right Foot, Partial 3rd Ray, Open Approach (ICD-10-PCS; 2019-08-06)
PROC: 0Y6M0ZD Detachment at Right Foot, Partial 4th Ray, Open Approach (ICD-10-PCS; 2019-08-06)
PROC: 0Y6M0ZF Detachment at Right Foot, Partial 5th Ray, Open Approach (ICD-10-PCS; 2019-08-06)
DX: E11.52 Type 2 diabetes mellitus with diabetic peripheral angiopathy with gangrene (principal); N17.0 Acute kidney failure with tubular necrosis; I50.23 Acute on chronic systolic (congestive) heart failure; E44.0 Moderate protein-calorie malnutrition; E11.40 Type 2 diabetes mellitus with diabetic neuropathy, unspecified; E11.22 Type 2 diabetes mellitus with diabetic chronic kidney disease; I48.91 Unspecified atrial fibrillation; I13.0 Hypertensive heart and chronic kidney disease with heart failure and stage 1 through stage 4 chronic kidney disease, or unspecified chronic kidney disease; I25.10 Atherosclerotic heart disease of native coronary artery without angina pectoris; N18.3 Chronic kidney disease, stage 3 (moderate); E66.9 Obesity, unspecified; E87.6 Hypokalemia; E11.621 Type 2 diabetes mellitus with foot ulcer; E78.5 Hyperlipidemia, unspecified; I27.20 Pulmonary hypertension, unspecified; F17.210 Nicotine dependence, cigarettes, uncomplicated; J44.9 Chronic obstructive pulmonary disease, unspecified; I77.1 Stricture of artery; L97.519 Non-pressure chronic ulcer of other part of right foot with unspecified severity; E55.9 Vitamin D deficiency, unspecified; Z95.810 Presence of automatic (implantable) cardiac defibrillator; I25.2 Old myocardial infarction; Z95.5 Presence of coronary angioplasty implant and graft; Z68.34 Body mass index [BMI] 34.0-34.9, adult; Z79.899 Other long term (current) drug therapy
CPT/HCPCS: 36415; 36569; 37225; 37229; 71045; 73630; 73700; 75710; 75716; 80048; 80053; 80061; 80202; 81001; 82043; 82306; 82565; 82570; 82962; 83036; 83605; 83735; 83880; 84100; 84300; 84443; 84484; 85025; 85610; 85652; 85730; 86141; 86850; 86900; 86901; 93005; 93306; 93925; 93970; 99152; 99153; C1724; G0378; J0696; J1815; J2001; J2250; J2405; J2543; J2704; J3490; Q9956; Q9967

== ENCOUNTER 2019-08-12 14:27 | Inpatient (IN) | payer MEDICAID ==
[~2019-08-12] VITALS: Ht 170.2 cm; Wt 96.7 kg
[~2019-08-12 14:27] MED LIST: ALBUAER3 IN; APIX5TAB PO; ATO40T PO; CLIN-203 PO; CLOP75TA28 PO; FURO40TA4 PO; GABA300C10 PO; GLYB5TAB8 PO; LISI40TA PO; METF-370 PO; METO-169 PO; SACC1CAP3 PO; SPIR25TA8 PO
[2019-08-12] MEDS ORDERED: AMIODARONE HCL 150 MG in D5W 5% 100 ML IV ONE (14:35)
[2019-08-12] MEDS: AMIODARONE HCL (50 MG/ ML) 3 ML VIAL IV ONE ×2 (14:43→14:57)
[2019-08-12] MEDS ORDERED: AMIODARONE 450mg/250ml AE 250 ML IV SCH ×2 (14:45→20:45)
[2019-08-12] MEDS ORDERED: ASPirin 81 mg TAB PO ONE (14:45)
[2019-08-12 14:52] LABS: Basophils # (auto) 0.1 10 ^3/uL (0-0.2); Basophils % (auto) 1.1 % (0.0-2.0); Eosinophils # (auto) 0 10 ^3/uL (0-0.8); Eosinophils % (auto) 0.3 % (0.0-7.0); Hematocrit 32.7 % (41.0-53.0); Hemoglobin 10.4 g/dL (13.5-17.5); Lymphocytes # (auto) 1.4 10 ^3/uL (0.4-5.4); Lymphocytes % (auto) 11.5 % (10.0-50.0); Mean Corpuscular Hemoglobin 28.5 pg (28.0-32.0); Mean Corpuscular Hgb Conc. 31.8 g/dL (32.0-36.0); Mean Corpuscular Volume 89.4 fL (80.0-100.0); Monocytes # (auto) 1.1 10 ^3/uL (0-1.3); Monocytes % (auto) 9.5 % (0.0-12.0); Neutrophils # (auto) 9.2 10 ^3/uL (1.6-8.6); Neutrophils % (auto) 77.6 % (37.0-80.0); Platelet Count (auto) 403 10^3/uL (140-450); Red Blood Cells 3.66 10^6/uL (4.5-5.90); Red Cell Distribution Width 16.5 % (11.8-14.3); White Blood Cell 11.8 10^3/uL (4.4-10.8)
[2019-08-12 15:10] LABS: INR 1.23 (0.9-1.15); Partial Thromboplastin Time 26.8 sec (23.64-32.05)
[2019-08-12] MEDS ORDERED: NITROGLYCERIN 0.4 MG SL TAB SL PRN (15:30)
[2019-08-12] MEDS ORDERED: DEXTROSE (50%) 50ML SYRG IV PRN (15:30)
[2019-08-12] MEDS ORDERED: ACETAMINOPHEN 500 MG TAB PO PRN (15:30)
[2019-08-12] MEDS ORDERED: MORPHINE SULF INJ 2 MG/ML SYRINGE 1ML IV PRN (15:30)
[2019-08-12 16:19] LABS: Albumin 2.4 g/dL (3.4-5.0); Potassium 4.3 mmol/L (3.5-5.1)
[2019-08-12 16:23] LABS: Bilirubin, Total 0.4 mg/dL (0.2-1.0); Total Protein 7.1 g/dL (6.4-8.2)
[2019-08-12 16:29] LABS: BUN/Creatinine Ratio 16.5
[2019-08-12] MEDS: ONDANSETRON HCL 4 MG/2 ML VIAL IV PRN (16:55)
[2019-08-12] MEDS: ACCU-CHEK COMFORT CURVE STRIP VI SCH ×2 (17:00→22:12)
[2019-08-12] MEDS: InsuLIN REG 1unit/0.01ml Soln (100units/ml) SC SCH ×2 (17:00→22:39)
[2019-08-12] MEDS ORDERED: METOPROLOL SUCCINATE XL 50 MG TAB PO ONE (19:00)
[2019-08-12] MEDS ORDERED: FUROSEMIDE 20 MG/2 ML VIAL IV ONE (19:00)
[2019-08-12] MEDS ORDERED: ENOXAPARIN SOD 100 MG/1 ML SYRINGE SC ONE (20:00)
[2019-08-12] MEDS: FUROSEMIDE 100 MG/10ML VIAL IV SCH (21:06)
[2019-08-12] MEDS ORDERED: ATORVASTATIN 20 MG TAB PO SCH (22:00)
[2019-08-12] MEDS ORDERED: CALCIUM CARB 500 MG CHEW TAB PO PRN (22:45)
[2019-08-13] VITALS (18 sets, daily range): BP systolic 79–134; BP diastolic 41–72
[2019-08-13] MEDS: MORPHINE SULF INJ 2 MG/ML SYRINGE 1ML IV PRN ×3 (04:24→19:11)
--- NOTE | 2019-08-13 06:00 | NUR ---
Admit to [facility] ESTEFANÍAHELADIO Castro admitted to [facility] via vikyrisaías on iron and steel work supervisor. Patient transferred to bed, connected to unit monitoring and oxygen, [facility] Patient oriented to Petrona ta RN, unit, room, bed, and unit policies regarding patient care and visiting hours. All questions and concerns addressed, patient verbalized understanding.Complete physical assessment done. Bilateral lower extremities covered with kerlix dressing, per patient he just had toes amputated bilaterally on sunday and dressing was changed yesterday. ED RN placed wound consult for patient. Dressing CDI.Patient is able to turn self without assistance. IV bilaterally are leaking, IV discontinued. New IV started on right FA 22g, pt tolerated well. Call light within easy reach, instructed to call PRN.
[2019-08-13 06:08] LABS: Basophils # (auto) 0 10 ^3/uL (0-0.2); Basophils % (auto) 0.2 % (0.0-2.0); Eosinophils # (auto) 0 10 ^3/uL (0-0.8); Lymphocytes # (auto) 1.2 10 ^3/uL (0.4-5.4); Mean Corpuscular Hemoglobin 29.1 pg (28.0-32.0); Mean Corpuscular Hgb Conc. 32.3 g/dL (32.0-36.0); Mean Corpuscular Volume 90.1 fL (80.0-100.0); Monocytes # (auto) 1.7 10 ^3/uL (0-1.3); Monocytes % (auto) 11.2 % (0.0-12.0); Neutrophils % (auto) 80.6 % (37.0-80.0); Nucleated Red Blood Cells % 0.1 %; Platelet Count (auto) 353 10^3/uL (140-450); Red Blood Cells 3.78 10^6/uL (4.5-5.90); White Blood Cell 14.9 10^3/uL (4.4-10.8)
[2019-08-13 06:21] LABS: INR 1.65 (0.9-1.15); Partial Thromboplastin Time 31.3 sec (23.64-32.05)
[2019-08-13 06:23] LABS: Calcium 9.7 mg/dL (8.5-10.1)
[2019-08-13] MEDS: FUROSEMIDE 100 MG/10ML VIAL IV SCH (06:30)
[2019-08-13 06:43] LABS: Albumin 2.5 g/dL (3.4-5.0); BUN/Creatinine Ratio 15.9; Total Protein 7.3 g/dL (6.4-8.2)
[2019-08-13] MEDS: ACCU-CHEK COMFORT CURVE STRIP VI SCH ×4 (06:55→21:08)
[2019-08-13] MEDS: InsuLIN REG 1unit/0.01ml Soln (100units/ml) SC SCH ×4 (07:01→21:03)
--- NOTE | 2019-08-13 07:30 | NUR ---
REPORT ENDORSED TO DAY SHIFT DAMIAN CARRERO
--- NOTE | 2019-08-13 07:45 | NUR ---
Opening Shift Note Assumed care of patient, awake and alert. No S/S of distress/SOB. Patient saturation 95% at room air. Patient complains of bilateral foot pain 4/10, will give [place] PRN. See interventions for complete assessment. Bed locked on low position, side rails up x2, bed alarms on at all times, call painting within reach, instructed on POC and to call for assist PRN, will continue to monitor for changes Q1hr and PRN.
[2019-08-13] MEDS ORDERED: FUROSEMIDE 40 MG TAB PO SCH (08:00)
[2019-08-13] MEDS: HYDROcodone-ACET 5/325MG TAB PO PRN ×2 (08:25→22:26)
--- NOTE | 2019-08-13 09:00 | NUR ---
Eamon and AICD circulation sales representative Regino at bedside for interrogation and adjustments made on AICD setting.
--- NOTE | 2019-08-13 09:40 | NUR ---
AICD set at 40's HR, will continue to monitor.
[2019-08-13] MEDS ORDERED: LISINOPRIL 20 MG TAB PO SCH (10:00)
[2019-08-13] MEDS: CLOPIDOGREL BISULFATE 75 MG TAB PO SCH ×2 (10:00→14:03)
[2019-08-13] MEDS ORDERED: SPIRONOLACTONE 25 MG TAB PO SCH (10:00)
[2019-08-13] MEDS: FAMOTIDINE 20 MG TAB PO SCH ×2 (10:00→14:03)
[2019-08-13] MEDS: METOPROLOL SUCCINATE XL 50 MG TAB PO SCH (10:00)
[2019-08-13] MEDS: ASPirin-EC 81 mg tab PO SCH ×2 (10:00→14:03)
--- NOTE | 2019-08-13 10:20 | NUR ---
Patient's HR 45, paced. BP 79/44. Verbalized feeling weird, weak and dizzy. Paged Eamon Villagomez SALES PORTER and called back. Updated on patient's status, verbalized understanding. AICD labor service representative Regino to come back to do adjustments. Paged Dr Hobbs and called back. Updated on patient's status, verbalized understanding. Received telephone order to hold off on Metoprolol for now. Read back and verified. Will carry out
--- NOTE | 2019-08-13 10:30 | NUR ---
IV insertion IV access obtained by Krysten SALGADO, via clean sterile technique by inserting 22 gauge catheter at LT hand after two attempts . IV secured properly. No trauma to site. Patient tolerated procedure well.
[2019-08-13] MEDS: ONDANSETRON HCL 4 MG/2 ML VIAL IV PRN ×3 (10:43→23:44)
--- NOTE | 2019-08-13 10:45 | NUR ---
PO meds held, patient feeling nauseous at this time. Will continue to monitor.
--- NOTE | 2019-08-13 10:53 | NUR ---
HR 50's paced, BP 100/45. Patient verbalized feeling better a little bit. Will continue to monitor.
--- NOTE | 2019-08-13 11:00 | NUR ---
Paged Dr Marinelli and Dr Hobbs regarding patient's HR and BP, awaiting call back.
--- NOTE | 2019-08-13 11:15 | NUR ---
Dr Marinelli at bedside, updated on patient's status. Patient seen and examined. Received verbal order to start patient on Dopamine for HR and BP. Read back and verified. Will carry out.
--- NOTE | 2019-08-13 11:23 | NUR ---
Dr Landin at bedside, updated on patient's status. Patient seen and examined. Received verbal order to hold Amiodarone drip. Orders read back and verified. Will carry out.
--- NOTE | 2019-08-13 11:26 | NUR ---
Amiodarone drip discontinued.
[2019-08-13] MEDS ORDERED: DOPamine 1600MCG/ML D5W 250 ML IV SCH (11:30)
[2019-08-13] MEDS ORDERED: SODIUM CHLORIDE 0.9% 1,000 ML IV SCH (11:45)
--- NOTE | 2019-08-13 12:45 | NUR ---
Dr Cohn at bedside, updated on patient's status. Patient seen and examined. Received verbal order to start patient on Lasix drip, insert carmichael catheter and discontinue IV fluids.
--- NOTE | 2019-08-13 13:03 | NUR ---
NIA Lacy at bedside for further interrogation
--- NOTE | 2019-08-13 13:08 | NUR ---
AICD set at 70's HR. Will continue to monitor.
[2019-08-13 13:26] LABS: Albumin 2.6 g/dL (3.4-5.0); Calcium 9.2 mg/dL (8.5-10.1); Potassium 4.7 mmol/L (3.5-5.1)
[2019-08-13 13:44] LABS: BUN/Creatinine Ratio 15.2; Bilirubin, Total 1.1 mg/dL (0.2-1.0); Total Protein 7.5 g/dL (6.4-8.2)
[2019-08-13] MEDS: FUROSEMIDE INJECTION 100 MG in D5W 5% 100 ML IV SCH (13:54)
[2019-08-13] MEDS: DOPamine 1600MCG/ML D5W 250 ML IV SCH (13:54)
--- NOTE | 2019-08-13 14:30 | NUR ---
WOUND CARE NOTE: IN TO SEE PATIENT AT THIS TIME PER WOUND CARE CONSULT REQUEST. PATIENT RECENTLY ADMITTED TO [facility] WITH DIAGNOSIS OF VENTRICULAR TACHYCARDIA. CURRENT MICH SCORE IS 17. PATIENT NOTED TO HAVE POST SURGICAL INCISIONS TO BILATERAL FEET. BOTH WOUNDS PHOTOGRAPHED AT THIS TIME PER PROTOCOL. PATIENT STATES THAT HE HAD SURGERY A FEW WEEKS AGO WITH DR. 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 PATIENT'S NEXT APPOINTMENT WITH DR. HERNANDEZ IS APPROXIMATELY ONE WEEK AGO. PATIENT NOTED TO HAVE A 11 CM STAPLED INCISION (21 GHASSAN) TO RIGHT FOREFOOT, AND 11 CM STAPLED INCISION (17 GHASSAN) TO LEFT FOREFOOT. BOTH INCISIONS ARE WELL APPROXIMATED, NO DRAINAGE NOTED. CLEANSED WOUNDS WITH WOUND CLEANSER, PATTED DRY WITH STERILE GAUZE. APPLIED XEROFORM STRIPS TO INCISION LINE OF BOTH INCISIONS. COVERED WITH TELFA. WRAPPED BOTH FEET WITH KERLIX, SECURED WITH TAPE. NO OTHER SKIN INTEGRITY ISSUES NOTED AT THIS TIME. SKIN/WOUND CARE PLAN IMPLEMENTED. RECOMMEND: EOD/PRN DRESSING CHANGES TO BILATERAL FEET INCISIONS, PODIATRY CONSULT, SKIN/WOUND CARE PLAN, DIETARY CONSULT FOR WOUNDS. NO FURTHER WOUND CARE NEEDED AT THIS TIME. Addendum: 08/13/19 at 1810 by Rita Noguera RN Amended: Links added.
--- NOTE | 2019-08-13 14:30 | NUR ---
Carmichael catheter insertion Patient assessed and determined to be in need of carmichael catheter. Order obtained from MD. Patient educated on catheter and reason for insertion. All questions answered. Carmichael catheter 16 guage Romansh inserted with clean sterile technique. 800ml initial urine output, clear yellow. Patient tolerated well.
--- NOTE | 2019-08-13 14:33 | NUR ---
Coleen dip filler at bedside
--- NOTE | 2019-08-13 14:46 | NUR ---
Urine sample sent to lab.
[2019-08-13 15:55] LABS: Urine Bacteria FEW /hpf (None Seen); Urine Blood Negative /uL (Negative); Urine Hyaline Cast MOD /lpf (0 - 2); Urine Specific Gravity 1.015 (1.001-1.035); Urine WBC 3 /hpf (0 - 3)
--- NOTE | 2019-08-13 16:00 | NUR ---
Paged Dr Cohn and called back. Updated on patient's status. Verbalized understanding. Received telephone order to discontinue Lasix IV BID and place Urology consult to Dr Mcintyre. Orders read back and verified. Will carry out.
[2019-08-13 16:04] LABS: Sodium Urine 40 mmol/L (40-220)
[2019-08-13 16:08] LABS: Creatinine, Urine 119 mg/dL (30.0-125.0)
--- NOTE | 2019-08-13 16:51 | NUR ---
Received call from patient's sister Coleen who's able to provide password. Updated on patient's status and POC, verbalized understanding. All questions and concerns addressed.
--- NOTE | 2019-08-13 17:03 | NUR ---
Abdominal ultrasound being done at bedside.
--- NOTE | 2019-08-13 17:10 | NUR ---
Received call from Dr Mcintyre. Updated on patient's status. Verbalized understanding and states "I'll see patient tomorrow."
--- NOTE | 2019-08-13 19:57 | NUR ---
pt was awake and alert. Iv on the right hand was infiltrated
--- NOTE | 2019-08-13 20:28 | NUR ---
gauge 22 was inseted by margarita feng RN with good bl00d return
--- NOTE | 2019-08-13 20:29 | NUR ---
ultrasound of the kidney done
[2019-08-13] MEDS: ENOXAPARIN SOD 100 MG/1 ML SYRINGE SC SCH (21:06)
[2019-08-13] MEDS ORDERED: TAMSULOSIN HYDROCHLORIDE 0.4 MG CAP PO ONE (21:45)
[2019-08-14] VITALS (15 sets, daily range): BP systolic 88–134; BP diastolic 53–74
[2019-08-14] MEDS: MORPHINE SULF INJ 2 MG/ML SYRINGE 1ML IV PRN ×3 (01:30→20:03)
[2019-08-14 04:22] LABS: Basophils # (auto) 0.1 10 ^3/uL (0-0.2); Basophils % (auto) 0.4 % (0.0-2.0); Eosinophils # (auto) 0 10 ^3/uL (0-0.8); Eosinophils % (auto) 0.2 % (0.0-7.0); Hematocrit 33.6 % (41.0-53.0); Hemoglobin 10.9 g/dL (13.5-17.5); Lymphocytes # (auto) 1.5 10 ^3/uL (0.4-5.4); Lymphocytes % (auto) 12.1 % (10.0-50.0); Mean Corpuscular Hemoglobin 28.9 pg (28.0-32.0); Mean Corpuscular Hgb Conc. 32.3 g/dL (32.0-36.0); Mean Corpuscular Volume 89.2 fL (80.0-100.0); Monocytes % (auto) 7.7 % (0.0-12.0); Neutrophils # (auto) 9.9 10 ^3/uL (1.6-8.6); Neutrophils % (auto) 79.6 % (37.0-80.0); Platelet Count (auto) 317 10^3/uL (140-450); Red Blood Cells 3.76 10^6/uL (4.5-5.90); Red Cell Distribution Width 16.8 % (11.8-14.3); White Blood Cell 12.5 10^3/uL (4.4-10.8)
[2019-08-14 04:24] LABS: Albumin 2.5 g/dL (3.4-5.0); Calcium 8.9 mg/dL (8.5-10.1); Potassium 5.1 mmol/L (3.5-5.1)
[2019-08-14 04:46] LABS: BUN/Creatinine Ratio 17.1; Bilirubin, Total 0.7 mg/dL (0.2-1.0); INR 1.76 (0.9-1.15); Total Protein 7.1 g/dL (6.4-8.2)
--- NOTE | 2019-08-14 05:22 | NUR ---
2199, PT IS ANXIOUS ENCOURAGE T TAKE A DEEPBREATH AND SLOWLY
--- NOTE | 2019-08-14 05:23 | NUR ---
0000- SLEEPING INTEMITENTLY
--- NOTE | 2019-08-14 05:25 | NUR ---
REPOSITIONE AND ORAL CARE DONE
--- NOTE | 2019-08-14 05:27 | NUR ---
AT [address] I TAB GIVEN FOR BACK PAIN
[2019-08-14] MEDS: DOPamine 1600MCG/ML D5W 250 ML IV SCH (06:20)
[2019-08-14] MEDS: InsuLIN REG 1unit/0.01ml Soln (100units/ml) SC SCH ×4 (06:29→22:00)
[2019-08-14] MEDS: ACCU-CHEK COMFORT CURVE STRIP VI SCH ×4 (06:38→22:11)
--- NOTE | 2019-08-14 08:00 | NUR ---
Opening Shift Note Assumed care of patient, awake and alert. No S/S of distress/SOB, on O2 NC 3 LPM. Instructed on POC and to call for assist PRN, will continue to monitor for changes Q1hr and PRN.
[2019-08-14] MEDS: ONDANSETRON HCL 4 MG/2 ML VIAL IV PRN (08:30)
[2019-08-14 09:11] LABS: Hepatitis B Surface Antibody Negative
--- NOTE | 2019-08-14 09:34 | NUR ---
Feeling better after Morphine and Zofran given, Had some, faxed over food requested to kitchen for cereal. Waiting for kitchen to send up here.
[2019-08-14] MEDS: FUROSEMIDE INJECTION 100 MG in D5W 5% 100 ML IV SCH (09:42)
[2019-08-14 09:50] LABS: Hepatitis A Total Antibody Negative
[2019-08-14] MEDS: METOPROLOL SUCCINATE XL 50 MG TAB PO SCH (10:00)
--- NOTE | 2019-08-14 10:00 | NUR ---
Scheduled Meds Scheduled medication given to pt. See e-MAR for medications given during this visit. Pt tolerated procedure well.
[2019-08-14 10:14] LABS: Hepatitis A Ab IgM Negative; Hepatitis B Core IgM Negative; Hepatitis B Core Total AB Negative
[2019-08-14 10:15] LABS: Hepatitis B Surface Antigen Negative (Negative); Hepatitis C Antibody Negative (Negative)
--- NOTE | 2019-08-14 10:30 | NUR ---
SEEN BY DR LOZADA.
[2019-08-14] MEDS: FAMOTIDINE 20 MG TAB PO SCH (10:48)
[2019-08-14] MEDS: CLOPIDOGREL BISULFATE 75 MG TAB PO SCH (10:48)
[2019-08-14] MEDS: ASPirin-EC 81 mg tab PO SCH (10:48)
[2019-08-14] MEDS: HYDROcodone-ACET 5/325MG TAB PO PRN ×2 (11:54→21:58)
--- NOTE | 2019-08-14 12:00 | NUR ---
SEEN BY DR BOOTHE WITH NEW ORDERS MADE AND CARRIED OUT. PT DOWNGRADED TO TELE.
--- NOTE | 2019-08-14 12:48 | NUR ---
PT WILL BE TRANSFERRED TO TELE ROOM 22 A. REPORT GIVEN TO DAMIAN STALEY. PT. AWARE.
[2019-08-14] MEDS: FUROSEMIDE 100 MG/10ML VIAL IV SCH (18:02)
[2019-08-14] MEDS: TAMSULOSIN HYDROCHLORIDE 0.4 MG CAP PO SCH (18:02)
[2019-08-14] MEDS: ENOXAPARIN SOD 100 MG/1 ML SYRINGE SC SCH (21:58)
--- NOTE | 2019-08-14 22:59 | NUR ---
PT TOOK THE DRESSING OFF OF HIS FOOT. PT STATES HE DOESNT KNOW WHY.DRESSING REWRAPPED.
--- NOTE | 2019-08-15 00:58 | NUR ---
SPOKE WITH ALVIN RUANO BECAUSE PT WANTS A NICOTINE PATCH RIGHT NOW. SIDE EFFECTS OF NICOTINE PATCHES ARE;ELEVATED HEART RATE. PT'S ORIGINAL DIAGNOSIS IS V-TACH SO HOSPITALIST STATES NO TO NICOTINE PATCH REQUEST. PT INFORMED.
[2019-08-15] MEDS: MORPHINE SULF INJ 2 MG/ML SYRINGE 1ML IV PRN ×3 (03:52→22:10)
[2019-08-15 04:50] VITALS: BP 119/60
[2019-08-15] MEDS: HYDROcodone-ACET 5/325MG TAB PO PRN ×2 (05:29→19:49)
[2019-08-15 06:04] LABS: Basophils # (auto) 0.1 10 ^3/uL (0-0.2); Basophils % (auto) 0.8 % (0.0-2.0); Eosinophils # (auto) 0.1 10 ^3/uL (0-0.8); Hematocrit 30.5 % (41.0-53.0); Hemoglobin 10.1 g/dL (13.5-17.5); Lymphocytes # (auto) 1.1 10 ^3/uL (0.4-5.4); Lymphocytes % (auto) 9.7 % (10.0-50.0); Mean Corpuscular Hemoglobin 29.4 pg (28.0-32.0); Mean Corpuscular Hgb Conc. 33.3 g/dL (32.0-36.0); Mean Corpuscular Volume 88.4 fL (80.0-100.0); Monocytes # (auto) 0.8 10 ^3/uL (0-1.3); Monocytes % (auto) 7.3 % (0.0-12.0); Neutrophils # (auto) 9.3 10 ^3/uL (1.6-8.6); Neutrophils % (auto) 81.2 % (37.0-80.0); Nucleated Red Blood Cells % 0.5 %; Platelet Count (auto) 260 10^3/uL (140-450); Red Blood Cells 3.44 10^6/uL (4.5-5.90); Red Cell Distribution Width 16.5 % (11.8-14.3); White Blood Cell 11.5 10^3/uL (4.4-10.8)
[2019-08-15] MEDS: FUROSEMIDE 100 MG/10ML VIAL IV SCH ×2 (06:21→17:23)
[2019-08-15] MEDS: ACCU-CHEK COMFORT CURVE STRIP VI SCH ×4 (06:28→22:11)
[2019-08-15] MEDS: InsuLIN REG 1unit/0.01ml Soln (100units/ml) SC SCH ×3 (06:29→17:45)
[2019-08-15 06:32] LABS: Albumin 2.3 g/dL (3.4-5.0); Calcium 8.5 mg/dL (8.5-10.1); Potassium 3.8 mmol/L (3.5-5.1)
[2019-08-15 06:42] LABS: BUN/Creatinine Ratio 28.7; Bilirubin, Total 0.7 mg/dL (0.2-1.0); Total Protein 6.3 g/dL (6.4-8.2)
--- NOTE | 2019-08-15 07:24 | NUR ---
PT RESTING WITH EYES CLOSED RESP EVEN UNLAB AND CALL LIGHT WITHIN REACH. CARE ENDORSED TO MC SALGADO.
--- NOTE | 2019-08-15 07:26 | NUR ---
Opening Shift Note Assumed care of patient, resting in bed with eyes closed. No S/S of distress/SOB or pain. Bed is set in lowest locked position with side rails up x 2 for safety and call light is within reach, will continue to monitor for changes Q1hr and PRN.
--- NOTE | 2019-08-15 08:05 | NUR ---
Alex Montgomery, to obtain clearance for labor arbitrator hearing office procedure. Awaiting call back.
[2019-08-15 08:30] VITALS: BP 110/60
[2019-08-15] MEDS: CLOPIDOGREL BISULFATE 75 MG TAB PO SCH (09:51)
[2019-08-15] MEDS: FAMOTIDINE 20 MG TAB PO SCH (09:51)
[2019-08-15] MEDS: ASPirin-EC 81 mg tab PO SCH (09:51)
[2019-08-15] MEDS: METOPROLOL SUCCINATE XL 50 MG TAB PO SCH (10:00)
--- NOTE | 2019-08-15 10:00 | NUR ---
at bedside Dr. Ulises HASKINS spoke to patient in regards to risks and benefits of laborer drying department procedure from nephrology stand point, patient verbalized understand. New orders received and read back for verification will proceed to carry out orders.
[2019-08-15] MEDS ORDERED: SODIUM CHLORIDE 0.9% 1,000 ML IV ONE (10:30)
--- NOTE | 2019-08-15 10:30 | NUR ---
Spoke to MD Dr. Marinelli, per MD patient is clear to proceed with catheterization laboratory technician procedure.
--- NOTE | 2019-08-15 10:38 | NUR ---
Patient off unit Taken down to minilab operator for procedure. IV's flushed prior and are intact/patent. No signs of distress noted upon departure. Care endorsed to DAMIAN Cordon.
[2019-08-15] MEDS ORDERED: IODIXANOL 320MG/ML 100ML BTL IV ONE ×2 (11:05→11:51)
[2019-08-15] MEDS ORDERED: LIDOCAINE 2%HCL (LOCAL ANESTH.) INJ 20ML MDV ONE (11:06)
[2019-08-15] MEDS ORDERED: ANGIOMAX 250 MG VIAL IV ONE (11:37)
[2019-08-15] MEDS ORDERED: HEPARIN SODIUM (PORCINE) 5000 UNITS/ML 1ML VIAL ONE (11:37)
[2019-08-15] MEDS ORDERED: VERAPAMIL 2.5MG/ML INJ 2ML VIAL IV ONE (11:38)
[2019-08-15] MEDS ORDERED: SODIUM CHL 0.9% 0 ML ONE (11:38)
[2019-08-15] MEDS ORDERED: MIDAZOLAM HCL 1MG/1ML-2 ML VIAL ONE (11:38)
[2019-08-15] MEDS ORDERED: fentaNYL CITRATE 100 MCG/2 ML VL ONE (11:38)
[2019-08-15 13:25] VITALS: BP 129/66
--- NOTE | 2019-08-15 13:25 | NUR ---
Patient returned to floor S/P left heart catheterization, access site is to the right radial with vasc-band in place, no signs of bleeding or distress noted. Will continue to monitor patient and proceed to carry out vasc band instructions for removal.
--- NOTE | 2019-08-15 15:58 | NUR ---
assessment Patient is a 59 year old male who is alert and oriented. Patients cognitive abilities are intact. Prior to admission patient lived home with his Rachael and functioned with assistance. Per patient he will return home to his prior living arrangements post discharge and Rachael will transport him home. Patient has a wheelchair, cane, and crutches for home use. Patient has no PCP. Valeria Steward to see patient prior to discharge for PCP. Patient came back to ER due to pacemaker going off per patient. Patient has no post discharge needs identified as of now. I informed patient he has a right to speak to a geriatric social work professor regarding all care. I informed patient he has a right to participate in any and all discharge planning. Patient does not have a POA and advanced directive. I have offered patient information on POA and advanced directives. I informed the patient the advantages and benefits of having an Advanced Directive. Patient verbalized understanding and agreed to discharge plan. Addendum: 08/15/19 at 1601 by Valeria SOL Amended: Links added.
[2019-08-15 17:02] VITALS: BP 124/64
[2019-08-15] MEDS: TAMSULOSIN HYDROCHLORIDE 0.4 MG CAP PO SCH (17:41)
--- NOTE | 2019-08-15 19:15 | NUR ---
Opening Shift Note Assumed care of patient. Patient is awake and alert. No S/S of distress/SOB or pain. Carmen intact, patent, draining to gravity and below level of bladder. Instructed on POC and to call for assist PRN, will continue to monitor for changes Q1hr and PRN. Bed locked in lowest position and bed rail up x2. Call light within reach.
--- NOTE | 2019-08-15 19:18 | NUR ---
Care endorsed to NOC RN.
[2019-08-15 22:00] VITALS: BP 108/56
[2019-08-15] MEDS: ENOXAPARIN SOD 100 MG/1 ML SYRINGE SC SCH (22:11)
[2019-08-16] MEDS: InsuLIN REG 1unit/0.01ml Soln (100units/ml) SC SCH ×5 (00:33→21:54)
[2019-08-16] MEDS: MORPHINE SULF INJ 2 MG/ML SYRINGE 1ML IV PRN ×4 (02:30→21:48)
[2019-08-16 05:00] VITALS: BP 131/65
[2019-08-16] MEDS: ACCU-CHEK COMFORT CURVE STRIP VI SCH ×4 (06:28→21:48)
[2019-08-16 06:59] LABS: Basophils # (auto) 0.1 10 ^3/uL (0-0.2); Basophils % (auto) 0.7 % (0.0-2.0); Eosinophils # (auto) 0.1 10 ^3/uL (0-0.8); Eosinophils % (auto) 1.3 % (0.0-7.0); Hematocrit 31.9 % (41.0-53.0); Hemoglobin 10.5 g/dL (13.5-17.5); Lymphocytes # (auto) 0.9 10 ^3/uL (0.4-5.4); Lymphocytes % (auto) 9.5 % (10.0-50.0); Mean Corpuscular Hemoglobin 29.1 pg (28.0-32.0); Mean Corpuscular Hgb Conc. 32.9 g/dL (32.0-36.0); Mean Corpuscular Volume 88.4 fL (80.0-100.0); Monocytes # (auto) 1.1 10 ^3/uL (0-1.3); Monocytes % (auto) 11.7 % (0.0-12.0); Neutrophils # (auto) 7.1 10 ^3/uL (1.6-8.6); Neutrophils % (auto) 76.8 % (37.0-80.0); Nucleated Red Blood Cells % 0.2 %; Platelet Count (auto) 293 10^3/uL (140-450); Red Blood Cells 3.61 10^6/uL (4.5-5.90); Red Cell Distribution Width 16.9 % (11.8-14.3); White Blood Cell 9.2 10^3/uL (4.4-10.8)
[2019-08-16 07:17] LABS: Albumin 2.3 g/dL (3.4-5.0); Calcium 8.3 mg/dL (8.5-10.1); Potassium 3.7 mmol/L (3.5-5.1)
--- NOTE | 2019-08-16 07:22 | NUR ---
Opening Shift Note Assumed care of patient, awake and alert. No S/S of distress/SOB or pain. Instructed on POC and to call for assist PRN, will continue to monitor for changes Q1hr and PRN. Bed is set in lowest locked position with side rails up x 2 for safety and call light is within reach. Noted right radial incision, no sign of bleeding and site is clean/dry.
[2019-08-16 07:27] LABS: Total Protein 6.5 g/dL (6.4-8.2)
[2019-08-16 09:00] VITALS: BP 114/56
[2019-08-16] MEDS: ASPirin-EC 81 mg tab PO SCH (09:02)
[2019-08-16] MEDS: CLOPIDOGREL BISULFATE 75 MG TAB PO SCH (09:02)
[2019-08-16] MEDS: FAMOTIDINE 20 MG TAB PO SCH (09:02)
[2019-08-16] MEDS: METOPROLOL SUCCINATE XL 50 MG TAB PO SCH (10:00)
--- NOTE | 2019-08-16 10:47 | NUR ---
MD rounding at bedside Dr. Marinelli, updated pt on POC.
[2019-08-16] MEDS ORDERED: METOPROLOL SUCCINATE XL 50 MG TAB PO ONE (11:15)
[2019-08-16] MEDS: ENOXAPARIN SOD 100 MG/1 ML SYRINGE SC SCH ×2 (11:18→21:48)
[2019-08-16 13:00] VITALS: BP 121/67
--- NOTE | 2019-08-16 15:05 | NUR ---
Nutrition Assessment Notes Please refer to link for full assessment notes. Est Energy needs: 8341-5009 kcals (17-20 kcal/kgBW) Est Protein needs: 58-73 gms/day (0.8-1.0 gm/kgBW) Will continue to monitor and reassess prn. Addendum: 08/16/19 at [address] Amended: Links added.
[2019-08-16 17:00] VITALS: BP 118/64
[2019-08-16] MEDS: TAMSULOSIN HYDROCHLORIDE 0.4 MG CAP PO SCH (17:36)
--- NOTE | 2019-08-16 19:44 | NUR ---
Opening Shift Note Assumed care of patient after report from DAMIAN Iglesias. Patient was sleeping. No S/S of distress/SOB or pain. Call light within reach, bed in lowest position x2 side rails. Instructed on POC and to call for assist PRN, will continue to monitor for changes Q1hr and PRN.
--- NOTE | 2019-08-16 21:30 | NUR ---
IV insertion IV access obtained, via clean sterile technique by inserting 22 gauge catheter at right wrist after 2 attempts. IV secured properly. No trauma to site. Patient tolerated well.
[2019-08-16 21:59] VITALS: BP 115/64
[2019-08-17] MEDS: MORPHINE SULF INJ 2 MG/ML SYRINGE 1ML IV PRN ×5 (02:04→21:33)
--- NOTE | 2019-08-17 02:46 | NUR ---
Wound dressing changed Wound care performed per MD orders, patient tolerated intervention well with no s/s of pain or distress.
--- NOTE | 2019-08-17 02:47 | NUR ---
IV removal IV DC'd with clean sterile technique, catheter fully intact. Pressure dressing applied to site. Patient tolerated well.
[2019-08-17 05:00] VITALS: BP 125/72
[2019-08-17 06:47] LABS: Potassium 4.1 mmol/L (3.5-5.1)
[2019-08-17] MEDS: ACCU-CHEK COMFORT CURVE STRIP VI SCH ×4 (06:48→22:40)
[2019-08-17] MEDS: InsuLIN REG 1unit/0.01ml Soln (100units/ml) SC SCH ×4 (06:49→22:46)
[2019-08-17 06:54] LABS: Albumin 2.1 g/dL (3.4-5.0); BUN/Creatinine Ratio 33.6; Calcium 8.5 mg/dL (8.5-10.1)
[2019-08-17 07:16] LABS: Total Protein 6.2 g/dL (6.4-8.2)
--- NOTE | 2019-08-17 07:16 | NUR ---
Opening Shift Note Assumed care of patient, resting in bed with eyes closed. No S/S of distress/SOB or pain. Will continue to monitor for changes Q1hr and PRN. Bed is set in lowest locked position with side rails up x 2 for safety and call light is within reach.
[2019-08-17 08:06] VITALS: BP 127/67
[2019-08-17 09:00] VITALS: BP 127/67
[2019-08-17] MEDS: FAMOTIDINE 20 MG TAB PO SCH (09:37)
[2019-08-17] MEDS: METOPROLOL SUCCINATE XL 50 MG TAB PO SCH (09:37)
[2019-08-17] MEDS: ASPirin-EC 81 mg tab PO SCH (09:37)
[2019-08-17] MEDS: CLOPIDOGREL BISULFATE 75 MG TAB PO SCH (09:37)
[2019-08-17] MEDS: ENOXAPARIN SOD 100 MG/1 ML SYRINGE SC SCH ×2 (09:38→22:40)
[2019-08-17 13:00] VITALS: BP 109/59
--- NOTE | 2019-08-17 13:05 | NUR ---
Urine sample sent to lab
--- NOTE | 2019-08-17 13:15 | NUR ---
Spoke to patient's family After verifying information password, provided family member, Afia, with an update of care. Family member is requesting for MD Marinelli to call her to provide information in regards to angiogram results. Will notify . Phone number provided is [phone].
--- NOTE | 2019-08-17 13:29 | NUR ---
MD Marinelli spoke to patient's family member Afia, provided family member with information requested. All questions answered at this time.
[2019-08-17 14:18] LABS: Urine Bacteria NONE SEEN /hpf (None Seen); Urine Blood 2+ /uL (Negative); Urine Budding Yeast MODERATE /hpf (None Seen); Urine Hyaline Cast FEW /lpf (0 - 2); Urine Mucus FEW (None Seen); Urine Specific Gravity 1.018 (1.001-1.035); Urine WBC 199 /hpf (0 - 3); Urine WBC Clumps PRESENT /hpf (None Seen)
--- NOTE | 2019-08-17 14:30 | NUR ---
Patient monitor shows short run of V-Tach Patient is resting in bed, asymptomatic no signs of distress. MD Marinelli aware, no new orders received at this time. Will continue to monitor patient.
[2019-08-17 16:45] VITALS: BP 105/56
[2019-08-17] MEDS: TAMSULOSIN HYDROCHLORIDE 0.4 MG CAP PO SCH (17:04)
[2019-08-17] MEDS ORDERED: POLYETHYLENE GLYCOL 17 GM PWDR PO PRN (19:30)
--- NOTE | 2019-08-17 19:30 | NUR ---
Opening Shift Note Assumed care of patient after getting report from DAMIAN Iglesias. Patient awake and alert. No S/S of distress/SOB or pain. Call light within reach, bed in lowest position. Instructed on POC and to call for assist PRN, will continue to monitor for changes Q1hr and PRN.
[2019-08-17 22:00] VITALS: BP 114/63
[2019-08-18] MEDS: MORPHINE SULF INJ 2 MG/ML SYRINGE 1ML IV PRN ×4 (01:41→20:42)
--- NOTE | 2019-08-18 02:05 | NUR ---
Wound dressing Wound dressing was noted to have minimal amount of drainage on outer krilex wrap. Wound was cleansed and dressed per MD orders. Patient tolerated intervention well with no signs or symptoms of distress or pain noted. Will continue to monitor.
[2019-08-18 06:00] VITALS: BP 123/74
[2019-08-18 06:20] LABS: Basophils # (auto) 0.1 10 ^3/uL (0-0.2); Basophils % (auto) 1.1 % (0.0-2.0); Eosinophils # (auto) 0.2 10 ^3/uL (0-0.8); Eosinophils % (auto) 2.1 % (0.0-7.0); Hemoglobin 10.1 g/dL (13.5-17.5); Lymphocytes # (auto) 1.5 10 ^3/uL (0.4-5.4); Lymphocytes % (auto) 14.6 % (10.0-50.0); Mean Corpuscular Hgb Conc. 32.7 g/dL (32.0-36.0); Mean Corpuscular Volume 88.8 fL (80.0-100.0); Monocytes # (auto) 1.5 10 ^3/uL (0-1.3); Monocytes % (auto) 14.2 % (0.0-12.0); Neutrophils # (auto) 7.1 10 ^3/uL (1.6-8.6); Nucleated Red Blood Cells % 0.3 %; Platelet Count (auto) 245 10^3/uL (140-450); Red Blood Cells 3.48 10^6/uL (4.5-5.90); Red Cell Distribution Width 17.1 % (11.8-14.3); White Blood Cell 10.4 10^3/uL (4.4-10.8)
[2019-08-18] MEDS: ACCU-CHEK COMFORT CURVE STRIP VI SCH ×4 (06:35→23:33)
[2019-08-18] MEDS: InsuLIN REG 1unit/0.01ml Soln (100units/ml) SC SCH ×4 (06:35→23:28)
[2019-08-18 06:43] LABS: Potassium 4.4 mmol/L (3.5-5.1)
[2019-08-18 06:59] LABS: Albumin 2.2 g/dL (3.4-5.0); BUN/Creatinine Ratio 30.9; Bilirubin, Total 0.8 mg/dL (0.2-1.0); Calcium 8.4 mg/dL (8.5-10.1); Magnesium 2.3 mg/dL (1.6-2.6); Total Protein 6.3 g/dL (6.4-8.2)
[2019-08-18 09:00] VITALS: BP 102/58
[2019-08-18] MEDS: ASPirin-EC 81 mg tab PO SCH (09:34)
[2019-08-18] MEDS: FAMOTIDINE 20 MG TAB PO SCH (09:35)
[2019-08-18] MEDS: HYDROcodone-ACET 5/325MG TAB PO PRN (09:35)
[2019-08-18] MEDS: ENOXAPARIN SOD 100 MG/1 ML SYRINGE SC SCH ×2 (09:36→23:33)
[2019-08-18] MEDS: CLOPIDOGREL BISULFATE 75 MG TAB PO SCH (09:36)
[2019-08-18] MEDS ORDERED: METOPROLOL TARTRATE 50 MG TAB PO ONE (10:15)
[2019-08-18] MEDS: FUROSEMIDE 40 MG/4 ML VIAL IV ONE ×2 (11:42→14:13)
[2019-08-18] MEDS ORDERED: FUROSEMIDE 20 MG/2 ML VIAL ONE (11:48)
[2019-08-18 13:00] VITALS: BP 128/90
--- NOTE | 2019-08-18 14:00 | NUR ---
INFORMED MD PATIENT'S WOULD LIKE TO BE CALLED FOR AN UPDATE.
[2019-08-18] MEDS: ONDANSETRON HCL 4 MG/2 ML VIAL IV PRN ×2 (14:05→20:42)
--- NOTE | 2019-08-18 14:35 | NUR ---
Faxed higher level of care request to [facility].
--- NOTE | 2019-08-18 14:52 | NUR ---
PT PT REFUSED PHYSICAL THERAPY THIS AFTERNOON. Signed: 08/18/19 at 1452 by NATHALIE PEDRO PTT <Co-Signature Required> Co-Signed: 08/18/19 at 145 by Lex Keith PT Addendum: 08/18/19 at 1452 by NATHALIE PEDRO PTT Amended: Links added.
--- NOTE | 2019-08-18 16:44 | NUR ---
I spoke with Dominguez at the [facility] Transfer [facility], he said they will require that a COVID-19 test be done on this patient prior to them accepting-I relayed this information to patient's primary nurse.
[2019-08-18 17:00] VITALS: BP 111/65
[2019-08-18] MEDS: TAMSULOSIN HYDROCHLORIDE 0.4 MG CAP PO SCH (17:48)
--- NOTE | 2019-08-18 18:54 | NUR ---
SPOKE WITH PATIENT'S AGAIN TO UPDATE. EXPLAINED THE TRANSFER TO [facility]. WOULD LIKE UPDATES ONCE A FACILITY AND DOCTOR HAS ACCEPTED THE PATIENT.
--- NOTE | 2019-08-18 20:10 | NUR ---
Recieved call from [facility] [place]. Spoke with Jo. Was informed of need to have a Covid test as well as have the hospitalist speak with the accepting md. Will page hospital to make aware. Call back number for [facility] is [phone].
[2019-08-18 22:00] VITALS: BP 100/64
[2019-08-18] MEDS: METOPROLOL TARTRATE 50 MG TAB PO SCH (22:00)
--- NOTE | 2019-08-18 22:03 | NUR ---
Hospitalist paged regarding transfer to [place]
--- NOTE | 2019-08-18 22:40 | NUR ---
Received call from Hospitalist. He states that he does not feel comfortable giving a report on a patient that he does not know. Will inform [facility] transfer center of need to wait [facility] daytime hospitalist is present.
[2019-08-18] MEDS: DAKINS HALF STR 0.25% (NaHypochlorite) 473 ML TOPICAL SOL TOP SCH (23:31)
--- NOTE | 2019-08-19 | NUR ---
Called [place] transfer center and made them aware of need to wait for daytime hospitalist to arrive.
[2019-08-19] MEDS: MORPHINE SULF INJ 2 MG/ML SYRINGE 1ML IV PRN ×3 (01:07→14:46)
[2019-08-19 05:00] VITALS: BP 111/69
[2019-08-19] MEDS: ACCU-CHEK COMFORT CURVE STRIP VI SCH ×3 (06:23→17:50)
[2019-08-19] MEDS: InsuLIN REG 1unit/0.01ml Soln (100units/ml) SC SCH ×3 (06:23→17:52)
[2019-08-19 06:30] LABS: Potassium 4.6 mmol/L (3.5-5.1)
[2019-08-19 06:42] LABS: Albumin 2.2 g/dL (3.4-5.0); BUN/Creatinine Ratio 31.3; Bilirubin, Total 0.8 mg/dL (0.2-1.0); Calcium 8.3 mg/dL (8.5-10.1); Total Protein 6.4 g/dL (6.4-8.2)
[2019-08-19 09:00] VITALS: BP 123/62
[2019-08-19] MEDS ORDERED: FUROSEMIDE 40 MG/4 ML VIAL IV SCH (10:00)
[2019-08-19] MEDS ORDERED: FUROSEMIDE 20 MG/2 ML VIAL IV SCH (10:00)
[2019-08-19] MEDS: DAKINS HALF STR 0.25% (NaHypochlorite) 473 ML TOPICAL SOL TOP SCH (10:00)
[2019-08-19] MEDS: CLOPIDOGREL BISULFATE 75 MG TAB PO SCH (10:13)
[2019-08-19] MEDS: FAMOTIDINE 20 MG TAB PO SCH (10:13)
[2019-08-19] MEDS: ENOXAPARIN SOD 100 MG/1 ML SYRINGE SC SCH (10:13)
[2019-08-19] MEDS: ASPirin-EC 81 mg tab PO SCH (10:13)
[2019-08-19] MEDS: METOPROLOL TARTRATE 50 MG TAB PO SCH (10:14)
--- NOTE | 2019-08-19 12:12 | NUR ---
I faxed negative COVID-19 result to [facility] Transfer [facility].
[2019-08-19 12:45] VITALS: BP 103/66
--- NOTE | 2019-08-19 13:55 | NUR ---
Pt refused to get out of bed to work on ambulation and also refused to sit at the edge of the bed when given the option. Pt was able to complete a few exercises while lying in supine. Pt completed gluteal squeezes; SLR's, ankle pumps;for bilat LE's and T Y and I exercises x 10 reps for bilat UE. Pt explained, that he was having a bad day, advised pt, it was understood and that maybe tomorrow it would be a better day for him. Addendum: 08/19/19 at 1359 by Ileana Velasquez PT Amended: Links added.
--- NOTE | 2019-08-19 14:48 | NUR ---
Nutrition Follow-up Wt.: 96.7 kg Pt sleeping with no family by bedside. per pt records pt awaiting tx at higher level of care. pt with no distress noted. pt is currently on CCHO 60 gm 2 gm na diet with adequate PO of 75% x 6 per RN doc Est Energy needs: 9104-2352 kcals (17-20 kcal/kgBW), Est Protein needs: 58-73 gms/day (0.8-1.0 gm/kgBW) Labs: BUN 51 H, CREAT 1.63 H, GLU 154 H, ALB 2.2 L. GI: Pt had 1 BM yesterday per RN doc Skin: Jose Roberto scale 19, low risk skin intact per RN doc PES: 1) Obesity r/t energy intake in excess of energy needs aeb 130% IBW and BMI of 30.1 kg/m2 Altered nutrition related lab values r/t current chronic medical condition aeb hyperglycemia, elev LFTs, elev Alk Phos, hypoalbuminemia Recommendations: 1) Continue to closely monitor pt PO intake to meet at least 75% of meals. 2) Refer pt to RD/CDE for nutrition education upon D/C .3) Continue current plan of care
--- NOTE | 2019-08-19 15:01 | NUR ---
I received a call from Jia at [facility] stating that their medical care administrator is declining the transfer of this patient due to them being too high risk for surgery at this time. I spoke with Dr. Marinelli-he spoke with Es Ferreira MD and is aware that they are not accepting this patient. I called [facility] [phone] and spoke with Rosa in Admissions-faxed her requested clinical information-she will speak with her MD and let me know if they are able to accept this patient.
[2019-08-19 16:45] VITALS: BP 105/69
--- NOTE | 2019-08-19 17:07 | NUR ---
Patient will be going to [facility] room 3117, Dr. Brower accepting, nurse to call report to [phone]. I called [facility] ([phone]) and spoke with Lauren-pharmacy picking tech time set for 1999. Medi-willi form faxed to [facility]. I spoke with nurse Andria to make her aware-I also spoke with Dr. Marinelli.
[2019-08-19] MEDS: TAMSULOSIN HYDROCHLORIDE 0.4 MG CAP PO SCH (18:00)
--- NOTE | 2019-08-19 18:52 | NUR ---
Spoke to patient's Rosa Maria and updated on POC and transfer to [facility]. She states she will call them once patient is transferred. Awaiting slat pickler from [facility]
--- NOTE | 2019-08-19 18:53 | NUR ---
MRSA collected and sent at this time. Patient refused dc photos at this time stating he already got the dressing changed.
--- NOTE | 2019-08-19 19:20 | NUR ---
Report called to [facility]. Spoke to Radha mccormack. Patient care endorsed to Michelle mccormack. Patient sitting up in bed no acute distress or sob. Patient to be discharged with carmichael catheter as ordered.
--- NOTE | 2019-08-19 19:30 | NUR ---
Opening Shift Note Assumed care of patient, awake and alert. No S/S of distress/SOB or pain. Instructed on POC and to call for assist PRN, will continue to monitor for changes Q1hr and PRN. Patient aware of transfer plan
[2019-08-19 20:00] VITALS: BP 103/59
--- NOTE | 2019-08-19 20:40 | NUR ---
Transferred Patient transferred by [facility], carmichael, and IV left on, tele monitor removed and sent to telemonitors. Patient in no sign of distress or pain.
[2019-08-20] MEDS ORDERED: SODIUM CHLORIDE 0.9% 500 ML IV ONE (00:01)
== END 2019-08-19 20:40 | disposition home or self-care (01) | DRG 192 ==
LOC: EDBD 14:27 → ER 14:27 → OVERFLOW 14:28 → DOU IN ICU 08-13 05:45 → TELE-CENTR 08-14 13:00
PROVIDERS: ADMIT Nurse Practitioner Acute Care; ATTEND Internal Medicine
PROC: 4A023N7 Measurement of Cardiac Sampling and Pressure, Left Heart, Percutaneous Approach (ICD-10-PCS; principal; 2019-08-15)
PROC: B2111ZZ Fluoroscopy of Multiple Coronary Arteries using Low Osmolar Contrast (ICD-10-PCS; 2019-08-15)
PROC: B2151ZZ Fluoroscopy of Left Heart using Low Osmolar Contrast (ICD-10-PCS; 2019-08-15)
DX: I47.2 Ventricular tachycardia (principal); I21.4 Non-ST elevation (NSTEMI) myocardial infarction; K72.00 Acute and subacute hepatic failure without coma; N17.0 Acute kidney failure with tubular necrosis; R57.0 Cardiogenic shock; I50.23 Acute on chronic systolic (congestive) heart failure; N18.3 Chronic kidney disease, stage 3 (moderate); I25.5 Ischemic cardiomyopathy; L03.032 Cellulitis of left toe; E66.9 Obesity, unspecified; I73.9 Peripheral vascular disease, unspecified; D63.8 Anemia in other chronic diseases classified elsewhere; I48.91 Unspecified atrial fibrillation; I25.10 Atherosclerotic heart disease of native coronary artery without angina pectoris; J44.9 Chronic obstructive pulmonary disease, unspecified; I13.0 Hypertensive heart and chronic kidney disease with heart failure and stage 1 through stage 4 chronic kidney disease, or unspecified chronic kidney disease; F17.210 Nicotine dependence, cigarettes, uncomplicated; E11.22 Type 2 diabetes mellitus with diabetic chronic kidney disease; N13.9 Obstructive and reflux uropathy, unspecified; E11.51 Type 2 diabetes mellitus with diabetic peripheral angiopathy without gangrene; Z79.899 Other long term (current) drug therapy; Z95.810 Presence of automatic (implantable) cardiac defibrillator; Z95.5 Presence of coronary angioplasty implant and graft; Z79.84 Long term (current) use of oral hypoglycemic drugs; I25.2 Old myocardial infarction; Z68.33 Body mass index [BMI] 33.0-33.9, adult
CPT/HCPCS: 36415; 71045; 76705; 76775; 80053; 80074; 81001; 82570; 82962; 83735; 83880; 83935; 84300; 84484; 85025; 85610; 85730; 86141; 86703; 86704; 86706; 86708; 86803; 86850; 86900; 86901; 87081; 87086; 87088; 87186; 87340; 93005; 96365; 97110; 97163; 99152; 99153; 99291; G0378; J1815; J2250; J2405; J7060; Q9967